=== PATIENT | female | born 1955 | race Caucasian/White ===

== ENCOUNTER → 2017-12-23 | Outpatient (CLI) | payer OTHER ==
[2017-12-15 10:33] VITALS: BP 116/67
[~2017-12-23] MED LIST: ASPI-630 PO; ATOR10TA60 PO; BISA5TAB4 PO; BUPR150T6 PO; CITA20TA6 PO; CLOP75TA PO; FAMO40TA4 PO; FENT1PAT13 TP; GABA-587 PO; HYDR-2758 PO; INSU100I13 SQ; IPRA0.2S5 IH; LACT1TAB24 PO; LISI10TA2 PO; MAGN64TA6 PO; NICO1PAT21 TD; SENN-79 PO; TAMS0.4C2 PO
--- NOTE | 2017-12-23 12:51 | RAD ---
Right upper extremity venous ultrasound, 12/23/2017: HISTORY: Right arm swelling and redness Duplex evaluation of the major veins in the right upper extremity was performed including grayscale, color-flow and spectral Doppler analysis. The right internal jugular, axillary and brachial, radial and ulnar veins are patent. There is occlusive thrombus in the right basilic and cephalic veins in the upper arms extending into the forearm. IMPRESSION: 1. No duplex evidence of deep vein thrombosis in the right upper extremity. 2. Extensive superficial venous thrombosis involving the cephalic and basilic veins. Electronically signed by: Darren Amezcua MD (12/23/2017 12:47 PM) [facility]
== END | disposition home or self-care (01) ==
LOC: US 09:16
PROVIDERS: ATTEND Internal Medicine
DX: I82.890 Acute embolism and thrombosis of other specified veins (principal); M79.89 Other specified soft tissue disorders
CPT/HCPCS: 93971

== ENCOUNTER 2018-01-03 16:34 | Inpatient (IN) | payer OTHER ==
[~2018-01-03] VITALS: Ht 162.6 cm; Wt 74.6 kg
[2018-01-03] MEDS ORDERED: IV NORMAL SALINE 1000ML BAG 1,000 ML IV ONE (17:30)
[2018-01-03] MEDS ORDERED: fentaNYL PF VIAL 100 MCG/2 ML VIAL IV ONE (17:30)
[2018-01-03 17:32] LABS: BASO % 1 % (0-3); EOS # 0.2 x10^3/uL (0.0-0.7); EOS % 3 % (0-3); HEMATOCRIT 28.5 % (36.0-47.0); HEMOGLOBIN 9.4 g/dL (12.0-15.5); LYMPH # 1.6 x10^3/uL (1.0-4.8); LYMPH % 21 % (24-48); MEAN CORPUSCULAR HEMOGLOBIN 32 pg (25-35); MEAN CORPUSCULAR HGB CONC 33 g/dL (31-37); MEAN CORPUSCULAR VOLUME 96 fL (79-100); MONO # 0.8 x10^3/uL (0.0-1.1); MONO % 10 % (0-9); NEUT # 5.1 x10^3uL (1.8-7.7); NEUT % 66 % (31-73); PLATELET COUNT 292 x10^3/uL (140-400); RED BLOOD COUNT 2.96 x10^6/uL (3.50-5.40); RED CELL DISTRIBUTION WIDTH 15.9 % (11.5-14.5); WHITE BLOOD COUNT 7.7 x10^3/uL (4.0-11.0)
[2018-01-03 17:43] LABS: PROTHROMBIN TIME PATIENT 15.7 SEC (11.7-14.0)
--- NOTE | 2018-01-03 17:44 | EKG ---
[facility] [address] [place] [address] Test Date: 2018-01-03 Test Time: 16:46:57 Pat Name: MIRIAM CONTRERAS Department: Room: Gender: F [employer]: : [id number] Requested By: HA JJ Order Number: [id number] Reading MD: Vasquez Riggs MD Measurements Intervals Altha Rate: 74 P: -26 RI: 164 QRS: -105 QRSD: 120 T: -13 QT: 408 QTc: 453 Interpretive Statements SINUS RHYTHM PAC'S RBBB NON-SPECIFIC ST/T CHANGES Electronically Signed On 01-04-2018 10:09:10 CDT by Vasquez Riggs MD
[2018-01-03 17:45] LABS: CALCIUM 8.6 mg/dL (8.5-10.1); GFR 55.8; POTASSIUM 5.2 mmol/L (3.5-5.1)
--- NOTE | 2018-01-03 17:46 | RAD ---
CT scan of the head without contrast 01/03/2018 Clinical History: Weakness. Technique: Unenhanced, contiguous, 5 mm axial sections were obtained through the head. One or more of the following individualized dose reduction techniques were utilized for this study: 1. Automated exposure control. 2. Adjustment of the mA and/or kV according to patient size. 3. Use of iterative reconstruction technique. Findings: No previous imaging studies are available for comparison. There is generalized parenchymal atrophy. Areas of decreased attenuation are seen within the periventricular and subcortical white matter of both cerebral hemispheres consistent with areas of small vessel ischemic disease. A 3.5 cm arachnoid cyst is seen anterior to the right anterior temporal lobe, unchanged. No acute parenchymal abnormality is seen. No acute extra-axial fluid collection is noted. No skull fracture is seen. Moderate mucosal thickening is seen involving the right maxillary sinus. Mild mucosal thickening in seen scattered throughout ethmoid air cells bilaterally. Impression: No acute intracranial abnormality is seen. Electronically signed by: Spencer Mejia MD (01/03/2018 5:43 PM) [facility]
[2018-01-03 17:50] LABS: ALBUMIN 2.6 g/dL (3.4-5.0); ALBUMIN/GLOBULIN RATIO 0.6 (1.0-1.7); MAGNESIUM 1.6 mg/dL (1.8-2.4); TOTAL BILIRUBIN 0.2 mg/dL (0.2-1.0); TOTAL PROTEIN 6.7 g/dL (6.4-8.2)
[2018-01-03 17:57] LABS: BILIRUBIN,URINE NEGATIVE (NEG); CLARITY,URINE CLEAR; COLOR,URINE YELLOW; NITRITE,URINE NEGATIVE (NEG); PROTEIN,URINE NEGATIVE (NEG-TRACE); UROBILINOGEN,URINE 0.2 mg/dL (0.2 mg/dL)
[2018-01-03 17:58] LABS: CREATINE KINASE 53 U/L (26-192)
[2018-01-03 18:04] LABS: AMORPHOUS SEDIMENT,UR PRESENT /HPF; BACTERIA,URINE 0 /HPF (0-FEW); RBC,URINE 0 /HPF (0-2); SQUAMOUS EPITHELIAL CELL,UR FEW /LPF
[2018-01-03] MEDS ORDERED: BUMETANIDE 1 MG/4 ML VIAL. IV ONE (18:15)
--- NOTE | 2018-01-03 18:17 | PHYS DOC ---
Past Medical History Past Medical History: CAD, CHF, COPD, Diabetes-Type II, Hip Fracture, Hypertension, ND Additional Past Medical Histor: NSTEMI, resp failure, Past Surgical History: Coronary Bypass Surgery, Hysterectomy, Other Additional Past Surgical Histo: multiple ABD surgeries;femur fx, Alcohol Use: None Drug Use: None Adult General Chief Complaint Chief Complaint: HYPOTENSION HPI HPI 62-year-old female presents from [facility] with report of generalized weakness with associated bradycardia and hypotension which apparently started today. Patient reports since leaving the hospital approximately one week ago patient has had a 25 pound weight gain as well as some increased bilateral lower extremity edema. Denies fever or chills. Denies known trauma. Patient has known decubitus ulcer. Denies chest pain or SOA. Review of Systems Review of Systems Constitutional: Denies fever or chills; reports generalized weakness Eyes: Denies change in visual acuity or eye pain [] HENT: Denies nasal congestion or sore throat [] Respiratory: Denies cough or shortness of breath [] Cardiovascular: Denies chest pain, reports increased BLE swelling GI: Denies abdominal pain, nausea, vomiting, bloody stools or diarrhea [] : Denies dysuria or hematuria [] Musculoskeletal: Reports low back pain with known ulceration Integument: Reports decubitus ulceration, denies rash Neurologic: Denies headache, focal weakness or sensory changes [] Complete systems were reviewed and found to be within normal limits, except as documented in this note. Current Medications Current Medications Current Medications Medications (Trade) Dose Ordered Sig/Fede Start Time Stop Time Status Last Admin Dose Admin Fentanyl Citrate (Fentanyl 2ml Vial) 50 mcg 1X ONCE 01/03/18 17:30 01/03/18 17:31 DC 01/03/18 17:51 50 MCG Sodium Chloride 1,000 ml @ 1,000 mls/hr 1X ONCE 01/03/18 17:30 01/03/18 18:29 DC 01/03/18 17:51 1,000 MLS/HR Allergies Allergies Allergies Coded Allergies Type Severity Reaction Last Updated Verified morphine Adverse Reaction Severe Anxiety 12/13/17 Yes oxycodone Adverse Reaction Intermediate Itching 12/13/17 Yes Physical Exam Physical Exam Constitutional: Well developed, well nourished, no acute distress, increased pallor HENT: Normocephalic, atraumatic, mucous membranes dry, dentures intact Eyes: PERRL, EOMI, conjunctiva normal, no discharge. [] Neck: Normal range of motion, no tenderness, supple, no meningeal signs Cardiovascular: Heart rate regular rhythm, no murmur [] Lungs & Thorax: Bilateral breath sounds clear to auscultation, some fine crackles at bases Abdomen: Soft, no tenderness Skin: Warm, dry, stage 2 decubitus ulceration without surrounding erythema Extremities: No tenderness, Increased weakness to BLE, able to move toes but unable to lift off bed, +3 pitting edema bilaterally Neurologic: Alert and oriented X 3, normal motor function, normal sensory function, no focal deficits noted. [] Current Patient Data Vital Signs Vital Signs Date Time Temp Pulse Resp B/P (MAP) Pulse Ox O2 Delivery O2 Flow Rate FiO2 01/03/18 16:42 97.9 75 14 84/47 (59) 96 Room Air 97.9 Lab Values Laboratory Tests Test 01/03/18 16:50 01/03/18 17:49 White Blood Count 7.7 x10^3/uL (4.0-11.0) Red Blood Count 2.96 x10^6/uL (3.50-5.40) L Hemoglobin 9.4 g/dL (12.0-15.5) L Hematocrit 28.5 % (36.0-47.0) L Mean Corpuscular Volume 96 fL (79-100) Mean Corpuscular Hemoglobin 32 pg (25-35) Mean Corpuscular Hemoglobin Concent 33 g/dL (31-37) Red Cell Distribution Width 15.9 % (11.5-14.5) H Platelet Count 292 x10^3/uL (140-400) Neutrophils (%) (Auto) 66 % (31-73) Lymphocytes (%) (Auto) 21 % (24-48) L Monocytes (%) (Auto) 10 % (0-9) H Eosinophils (%) (Auto) 3 % (0-3) Basophils (%) (Auto) 1 % (0-3) Neutrophils # (Auto) 5.1 x10^3uL (1.8-7.7) Lymphocytes # (Auto) 1.6 x10^3/uL (1.0-4.8) Monocytes # (Auto) 0.8 x10^3/uL (0.0-1.1) Eosinophils # (Auto) 0.2 x10^3/uL (0.0-0.7) Basophils # (Auto) 0.0 x10^3/uL (0.0-0.2) Prothrombin Time 15.7 SEC (11.7-14.0) H Prothrombin Time INR 1.3 (0.8-1.1) H PTT 39 SEC (24-38) H Sodium Level 135 mmol/L (136-145) L Potassium Level 5.2 mmol/L (3.5-5.1) H Chloride Level 100 mmol/L (98-107) Carbon Dioxide Level 23 mmol/L (21-32) Anion Gap 12 (6-14) Blood Urea Nitrogen 33 mg/dL (7-20) H Creatinine 1.0 mg/dL (0.6-1.0) Estimated GFR (Cockcroft-Gault) 55.8 BUN/Creatinine Ratio 33 (6-20) H Glucose Level 142 mg/dL (70-99) H Lactic Acid Level 1.3 mmol/L (0.4-2.0) Calcium Level 8.6 mg/dL (8.5-10.1) Magnesium Level 1.6 mg/dL (1.8-2.4) L Total Bilirubin 0.2 mg/dL (0.2-1.0) Aspartate Amino Transferase (AST) 15 U/L (15-37) Alanine Aminotransferase (ALT) 16 U/L (14-59) Alkaline Phosphatase 223 U/L (46-116) H Creatine Kinase 53 U/L (26-192) Creatine Kinase MB (Mass) 3.6 ng/mL (0.0-3.6) Creatine Kinase MB Relative Index % (0-4) Troponin I Quantitative < 0.017 ng/mL (0.000-0.055) KI-Pdn-A-Type Natriuretic Peptide > 85884 pg/mL (0-124) H Total Protein 6.7 g/dL (6.4-8.2) Albumin 2.6 g/dL (3.4-5.0) L Albumin/Globulin Ratio 0.6 (1.0-1.7) L Urine Collection Type U cath Urine Color Yellow Urine Clarity Clear Urine pH 5.0 Urine Specific [place] 1.010 Urine Protein Negative mg/dL (NEG-TRACE) Urine Glucose (UA) Negative mg/dL (NEG) Urine Ketones (Stick) Negative mg/dL (NEG) Urine Blood Negative (NEG) Urine Nitrite Negative (NEG) Urine Bilirubin Negative (NEG) Urine Urobilinogen Dipstick 0.2 mg/dL (0.2 mg/dL) Urine Leukocyte Esterase Small (NEG) Urine RBC 0 /HPF (0-2) Urine WBC 5-10 /HPF (0-4) Urine Squamous Epithelial Cells Few /LPF Urine Amorphous Sediment Present /HPF Urine Bacteria 0 /HPF (0-FEW) Urine Mucus Slight /LPF Laboratory Tests 01/03/18 16:50 Laboratory Tests 01/03/18 16:50 EKG EKG @1646 Sinus rhythm at 74bpm, incomplete RBBB, compared to prior EKG per MUSE review from 12/11/2017 Radiology/Procedures Radiology/Procedures PROCEDURE: CT HEAD WO CONTRAST CT scan of the head without contrast 01/03/2018 Clinical History: Weakness. Technique: Unenhanced, contiguous, 5 mm axial sections were obtained through the head. One or more of the following individualized dose reduction techniques were utilized for this study: 1. Automated exposure control. 2. Adjustment of the mA and/or kV according to patient size. 3. Use of iterative reconstruction technique. Findings: No previous imaging studies are available for comparison. There is generalized parenchymal atrophy. Areas of decreased attenuation are seen within the periventricular and subcortical white matter of both cerebral hemispheres consistent with areas of small vessel ischemic disease. A 3.5 cm arachnoid cyst is seen anterior to the right anterior temporal lobe, unchanged. No acute parenchymal abnormality is seen. No acute extra-axial fluid collection is noted. No skull fracture is seen. Moderate mucosal thickening is seen involving the right maxillary sinus. Mild mucosal thickening in seen scattered throughout ethmoid air cells bilaterally. Impression: No acute intracranial abnormality is seen. Electronically signed by: Spencer Mejia MD (01/03/2018 5:43 PM) [facility] CXR single view: Mild increased vascular congestion noted, no focal pneumonia. Course & Med Decision Making Course & Med Decision Making Pertinent Labs and Imaging studies reviewed. (See chart for details) Patient presents from [facility] with increased weakness and increased BLE edema. EKG stable. Patient with dry mucous membranes and hypotension. IVF hydration given. Labs obtained and posted to chart. Initial troponin WNL. BNP > 49621. Bumex provided. UA with mild signs of infection. Empiric antibiotics given. Patient requiring admission for further evaluation and treatment. Discussed with Dr. Taylor (hospitalist) who is in agreement with admission. Discussed findings and plan with patient and family, who acknowledge understanding and agreement. Dragon Disclaimer Dragon Disclaimer This electronic medical record was generated, in whole or in part, using a voice recognition dictation system. Departure Departure Impression: Primary Impression: Generalized weakness Additional Impressions: Acute exacerbation of CHF (congestive heart failure) Hypotension Urinary tract infection Disposition: ADMITTED INPATIENT Admitting Physician: Nandini Taylor Condition: GUARDED Referrals: UNKNOWN PCP NAME (PCP) Critical Care Time Critical care time was 30 minutes which includes time at bedside, spent in discussion of patient's care with specialists and/or family members, with interpretation of laboratory and/or radiological studies and is exclusive of procedures. Problem Qualifiers Additional Impressions: Acute exacerbation of CHF (congestive heart failure) Heart failure type: unspecified Qualified Codes: I50.9 - Heart failure, unspecified Hypotension Hypotension type: unspecified hypotension type Qualified Codes: I95.9 - Hypotension, unspecified Urinary tract infection Urinary tract infection type: acute cystitis Hematuria presence: without hematuria Qualified Codes: N30.00 - Acute cystitis without hematuria HA JJ DO Jan 03, 2018 18:17
[2018-01-03] MEDS ORDERED: ONDANSETRON PF 4 MG/2 ML VIAL. IV PRN (18:30)
[2018-01-03] MEDS ORDERED: DEXTROSE 50% 25 GM / 50ML DISP.SYRIN. IV PRN (18:30)
[2018-01-03] MEDS ORDERED: fentaNYL PF VIAL 100 MCG/2 ML VIAL IV PRN (18:30)
[2018-01-03 19:45] VITALS: BP 114/62
--- NOTE | 2018-01-03 20:25 | RAD ---
AP portable chest radiograph 01/03/2018 Clinical History: Weakness. Syncope. Coronary artery disease. COPD. An AP erect portable digital radiograph of the chest was obtained. Comparison study is dated 12/09/2017. The ET and NG tube have been removed. The left-sided chest tube and mediastinal drain have been removed. The cardiac silhouette is mildly enlarged. Atherosclerotic calcification of the thoracic aorta is seen. The thoracic aorta is mildly tortuous. There are small bilateral pleural effusions. No acute pulmonary infiltrate is seen. No pneumothorax is noted. The osseous structures are unchanged. Impression: Cardiomegaly with small bilateral pleural effusions. No acute pulmonary infiltrate is seen. Electronically signed by: Spencer Mejia MD (01/03/2018 8:21 PM) [facility]
[2018-01-03] MEDS ORDERED: BISACODYL 5 MG TABLET.DR. PO PRN (21:45)
--- NOTE | 2018-01-03 21:54 | PDOC1 ---
History and Physical Date of Admission Date of Admission DATE: 01/03/18 TIME: 21:43 Identification/Chief Complaint Chief Complaint Le edema, weakness Source Source: Chart review, Patient History of Present Illness History of Present Illness Ms. Fernandez, is a 62-year-old female, admit here recently, [facility], and has not gotten stronger. has new LE edema, 25 lbs weight gain anup week, with marked LE edema, adn shortness of breath. She could not do PT due to leg heaviness from edema . Denies fever or chills. Denies known trauma. Patient has known decubitus ulcer. Denies chest pain or SOA. Past Medical History Cardiovascular: CAD, HTN, Hyperlipidemia Pulmonary: No pertinent hx CENTRAL NERVOUS SYSTEM: Other GI: No pertinent hx, Inflam bowel disease Heme/Onc: No pertinent hx Hepatobiliary: No pertinent hx Psych: No pertinent hx Musculoskeletal: low back pain, Osteoarthritis, Other Rheumatologic: No pertinent hx Infectious disease: No pertinent hx Renal/: Urinary Incontinence Endocrine: Diabetes Past Surgical History Past Surgical History: Appendectomy, CABG, Hysterectomy, Other Family History Family History: Coronary Artery Disease Social History Smoke: Quit (had smoked a lot) ALCOHOL: none Drugs: None Current Problem List Problem List Problems Medical Problems: (1) Acute exacerbation of CHF (congestive heart failure) Status: Acute (2) Hypotension Status: Acute (3) Urinary tract infection Status: Acute Current Medications Current Medications Current Medications Sodium Chloride 1,000 ml @ 1,000 mls/hr 1X ONCE IV Last administered on at 17:51; Start 01/03/18 at 17:30; Stop 01/03/18 at 18:29; Status DC Fentanyl Citrate (Fentanyl 2ml Vial) 50 mcg 1X ONCE IV Last administered on at 17:51; Start 01/03/18 at 17:30; Stop 01/03/18 at 17:31; Status DC Bumetanide (Bumex) 0.5 mg 1X ONCE IV Last administered on 01/03/18at 18:51; Start 01/03/18 at 18:15; Stop 01/03/18 at 18:16; Status DC Ceftriaxone Sodium 50 ml @ 100 mls/hr 1X ONCE IV Last administered on at 18:51; Start 01/03/18 at 18:30; Stop 01/03/18 at 18:59; Status DC Ceftriaxone Sodium (Rocephin) 1 gm Q24H IVP ; Start 01/04/18 at 18:00 Ondansetron HCl (Zofran) 4 mg PRN Q8HRS PRN IV NAUSEA/VOMITING; Start 01/03/18 at 18:30; Stop 01/04/18 at 18:29 Fentanyl Citrate (Fentanyl 2ml Vial) 50 mcg PRN Q1HR PRN IV PAIN; Start at 18:30; Stop 01/04/18 at 18:29 Insulin Human Lispro (HumaLOG) 0-5 UNITS TIDWMEALS SQ ; Start 01/04/18 at 08:00 Dextrose (Dextrose 50%-Water Syringe) 12.5 gm PRN Q15MIN PRN IV SEE COMMENTS; Start 01/03/18 at 18:30 Zolpidem Tartrate (Ambien) 5 mg PRN QHS PRN PO INSOMNIA; Start 01/03/18 at 21: 45 Aspirin (Children'S Aspirin) 81 mg DAILY PO ; Start 01/04/18 at 09:00 Atorvastatin Calcium (Lipitor) 10 mg HS PO ; Start 01/03/18 at 22:00 Bisacodyl (Dulcolax Tab) 10 mg PRN DAILY PRN PO CONSTIPATION 1ST CHOICE; Start 01/03/18 at 21:45 Bupropion HCl (Wellbutrin Xl) 150 mg DAILY PO ; Start 01/04/18 at 09:00 Clopidogrel Bisulfate (Plavix) 75 mg DAILY PO ; Start 01/04/18 at 09:00 Acetaminophen/ Hydrocodone Bitart (Lortab 5/325) 1 tab PRN Q4HRS PRN PO MODERATE PAIN; Start 01/03/18 at 21:45 Ipratropium [place] (Atrovent) 0.5 mg RTBID IH ; Start 01/04/18 at 08:00 Lisinopril (Prinivil) 10 mg DAILY PO ; Start 01/04/18 at 09:00 Famotidine (Pepcid) 40 mg QHS PO ; Start 01/03/18 at 22:00 Gabapentin (Neurontin) 400 mg TID PO ; Start 01/03/18 at 22:00 Nicotine (Nicoderm Cq 21mg) 1 patch PRN DAILY PRN TD SMOKING CESSATION; Start 01/03/18 at 22:00 Active Scripts Active Reported FENTANYL 12mcg/hr (Fentanyl) 1 Each Patch.td72 1 Patch TP Q3DAYS Senna (Sennosides) 8.6 Mg Tablet 8.6 Mg PO NICODERM CQ 21mg (Nicotine) 1 Each Patch.td24 1 Patch TD DAILY Ipratropium [place] 0.2 Mg/1 Ml Solution 0.5 Mg IH Hydrocodone-Apap 5-325 (Hydrocodone Bit/Acetaminophen) 1 Each Tablet 1 Tab PO PRN Q4HRS PRN Famotidine 40 Mg Tablet 40 Mg PO HS Clopidogrel (Clopidogrel Bisulfate) 75 Mg Tablet 75 Mg PO DAILY Bisacodyl 5 Mg Tablet.dr 10 Mg PO PRN DAILY PRN Aspirin 81 Mg Tab.chew 81 Mg PO DAILY Lantus Solostar (Insulin Glargine,Hum.rec.anlog) 100 Unit/1 Ml Insuln.pen 1 Unit SQ Lisinopril 10 Mg Tablet 10 Mg PO DAILY Bupropion Xl (Bupropion Hcl) 150 Mg Tab.er.24h 150 Mg PO Gabapentin 400 Mg Capsule 400 Mg PO TID Atorvastatin Calcium 10 Mg Tablet 10 Mg PO HS Allergies Allergies: Coded Allergies: morphine (Verified Adverse Reaction, Severe, Anxiety, 12/13/17) oxycodone (Verified Adverse Reaction, Intermediate, Itching, 12/13/17) ROS General: No: Chills, Night Sweats, Fatigue, Malaise, Appetite, Other PSYCHOLOGICAL ROS: No: Anxiety, Behavioral Disorder, Concentration difficultie , Decreased libido, Depression, Disorientation, Hallucinations, Hostility, Irritablity, Memory difficulties, Mood Swings, Obsessive thoughts, Physical abuse, Sexual abuse, Sleep disturbances, Suicidal ideation, Other HEENT: No: Heacaches, Visual Changes, Hearing change, Nasal congestion, Nasal discharge, Oral lesions, Sinus pain, Sore Throat, Epistaxis, Sneezing, Snoring, Tinnitus, Vertigo, Vocal changes, Other Respiratory: YES: Shortness of breath, SOB with excertion; No: Cough, Hemoptysis, Orthopnea, Pleuritic Pain, Sputum Changes, Stridor, Tachypnea, Wheezing, Other Cardiovascular: yes Edema, yes Lt Headedness; No Chest Pain, No Palpitations, No Orthopnea, No Paroxysmal Noc. Dyspnea, No Other Gastrointestinal: Yes Nausea Genitourinary: No Dysuria, No Frequency, No Incontinence, No Hematuria, No Retention, No Discharge, No Urgency, No Pain, No Flank Pain, No Other, No , No , No , No , No , No , No Musculoskeletal: Yes Joint Pain, Yes Joint Stiffness, Yes Joint Swelling Neurological: No Behavorial Changes, No Bowel/Bladder ControlChng, No Confusion , No Dizziness, No Gait Disturbance, No Headaches, No Impaired Coord/balance, No Memory Loss, No Numbness/Tingling, No Seizures, No Speech Problems, No Tremors, No Visual Changes, No Weakness, No Other Skin: No Dry Skin, No Eczema, No Hair Changes, No Lumps, No Mole Changes, No Mottling, No Nail Changes, No Pruritus, No Rash, No Skin Lesion Changes, No Other, No Acne Physical Exam General: Alert, Cooperative, No acute distress HEENT: EOMI, Mucous membr. moist/pink Lungs: Clear to auscultation, Normal air movement Heart: S1S2, no gallops, no murmurs Abdomen: Normal bowel sounds, Soft Rectal Exam: not examined Extremities: No clubbing, No cyanosis, No edema, Normal pulses Skin: No rashes, No significant lesion Neuro: Normal gait, Normal speech, Normal tone, Sensation intact, Cranial nerves 3-12 NL Psych/Mental Status: Mental status NL, Mood NL Vitals Vitals Vital Signs Date Time Temp Pulse Resp B/P (MAP) Pulse Ox O2 Delivery O2 Flow Rate FiO2 01/03/18 19:45 98.0 86 20 114/62 (79) 94 Room Air 98.0 Labs Labs Laboratory Tests Test 01/03/18 16:50 01/03/18 17:49 01/03/18 21:05 White Blood Count 7.7 x10^3/uL (4.0-11.0) Red Blood Count 2.96 x10^6/uL (3.50-5.40) Hemoglobin 9.4 g/dL (12.0-15.5) Hematocrit 28.5 % (36.0-47.0) Mean Corpuscular Volume 96 fL (79-100) Mean Corpuscular Hemoglobin 32 pg (25-35) Mean Corpuscular Hemoglobin Concent 33 g/dL (31-37) Red Cell Distribution Width 15.9 % (11.5-14.5) Platelet Count 292 x10^3/uL (140-400) Neutrophils (%) (Auto) 66 % (31-73) Lymphocytes (%) (Auto) 21 % (24-48) Monocytes (%) (Auto) 10 % (0-9) Eosinophils (%) (Auto) 3 % (0-3) Basophils (%) (Auto) 1 % (0-3) Neutrophils # (Auto) 5.1 x10^3uL (1.8-7.7) Lymphocytes # (Auto) 1.6 x10^3/uL (1.0-4.8) Monocytes # (Auto) 0.8 x10^3/uL (0.0-1.1) Eosinophils # (Auto) 0.2 x10^3/uL (0.0-0.7) Basophils # (Auto) 0.0 x10^3/uL (0.0-0.2) Prothrombin Time 15.7 SEC (11.7-14.0) Prothromb Time International Ratio 1.3 (0.8-1.1) Activated Partial Thromboplast Time 39 SEC (24-38) Sodium Level 135 mmol/L (136-145) Potassium Level 5.2 mmol/L (3.5-5.1) Chloride Level 100 mmol/L (98-107) Carbon Dioxide Level 23 mmol/L (21-32) Anion Gap 12 (6-14) Blood Urea Nitrogen 33 mg/dL (7-20) Creatinine 1.0 mg/dL (0.6-1.0) Estimated GFR (Cockcroft-Gault) 55.8 BUN/Creatinine Ratio 33 (6-20) Glucose Level 142 mg/dL (70-99) Lactic Acid Level 1.3 mmol/L (0.4-2.0) Calcium Level 8.6 mg/dL (8.5-10.1) Magnesium Level 1.6 mg/dL (1.8-2.4) Total Bilirubin 0.2 mg/dL (0.2-1.0) Aspartate Amino Transf (AST/SGOT) 15 U/L (15-37) Alanine Aminotransferase (ALT/SGPT) 16 U/L (14-59) Alkaline Phosphatase 223 U/L (46-116) Creatine Kinase 53 U/L (26-192) Creatine Kinase MB (Mass) 3.6 ng/mL (0.0-3.6) Creatine Kinase MB Relative Index % (0-4) Troponin I Quantitative < 0.017 ng/mL (0.000-0.055) < 0.017 ng/mL (0.000-0.055) SY-Upl-X-Type Natriuretic Peptide > 94101 pg/mL (0-124) Total Protein 6.7 g/dL (6.4-8.2) Albumin 2.6 g/dL (3.4-5.0) Albumin/Globulin Ratio 0.6 (1.0-1.7) Urine Collection Type U cath Urine Color Yellow Urine Clarity Clear Urine pH 5.0 Urine Specific [place] 1.010 Urine Protein Negative mg/dL (NEG-TRACE) Urine Glucose (UA) Negative mg/dL (NEG) Urine Ketones (Stick) Negative mg/dL (NEG) Urine Blood Negative (NEG) Urine Nitrite Negative (NEG) Urine Bilirubin Negative (NEG) Urine Urobilinogen Dipstick 0.2 mg/dL (0.2 mg/dL) Urine Leukocyte Esterase Small (NEG) Urine RBC 0 /HPF (0-2) Urine WBC 5-10 /HPF (0-4) Urine Squamous Epithelial Cells Few /LPF Urine Amorphous Sediment Present /HPF Urine Bacteria 0 /HPF (0-FEW) Urine Mucus Slight /LPF Laboratory Tests Test 01/03/18 16:50 01/03/18 17:49 01/03/18 21:05 White Blood Count 7.7 x10^3/uL (4.0-11.0) Red Blood Count 2.96 x10^6/uL (3.50-5.40) Hemoglobin 9.4 g/dL (12.0-15.5) Hematocrit 28.5 % (36.0-47.0) Mean Corpuscular Volume 96 fL (79-100) Mean Corpuscular Hemoglobin 32 pg (25-35) Mean Corpuscular Hemoglobin Concent 33 g/dL (31-37) Red Cell Distribution Width 15.9 % (11.5-14.5) Platelet Count 292 x10^3/uL (140-400) Neutrophils (%) (Auto) 66 % (31-73) Lymphocytes (%) (Auto) 21 % (24-48) Monocytes (%) (Auto) 10 % (0-9) Eosinophils (%) (Auto) 3 % (0-3) Basophils (%) (Auto) 1 % (0-3) Neutrophils # (Auto) 5.1 x10^3uL (1.8-7.7) Lymphocytes # (Auto) 1.6 x10^3/uL (1.0-4.8) Monocytes # (Auto) 0.8 x10^3/uL (0.0-1.1) Eosinophils # (Auto) 0.2 x10^3/uL (0.0-0.7) Basophils # (Auto) 0.0 x10^3/uL (0.0-0.2) Prothrombin Time 15.7 SEC (11.7-14.0) Prothromb Time International Ratio 1.3 (0.8-1.1) Activated Partial Thromboplast Time 39 SEC (24-38) Sodium Level 135 mmol/L (136-145) Potassium Level 5.2 mmol/L (3.5-5.1) Chloride Level 100 mmol/L (98-107) Carbon Dioxide Level 23 mmol/L (21-32) Anion Gap 12 (6-14) Blood Urea Nitrogen 33 mg/dL (7-20) Creatinine 1.0 mg/dL (0.6-1.0) Estimated GFR (Cockcroft-Gault) 55.8 BUN/Creatinine Ratio 33 (6-20) Glucose Level 142 mg/dL (70-99) Lactic Acid Level 1.3 mmol/L (0.4-2.0) Calcium Level 8.6 mg/dL (8.5-10.1) Magnesium Level 1.6 mg/dL (1.8-2.4) Total Bilirubin 0.2 mg/dL (0.2-1.0) Aspartate Amino Transf (AST/SGOT) 15 U/L (15-37) Alanine Aminotransferase (ALT/SGPT) 16 U/L (14-59) Alkaline Phosphatase 223 U/L (46-116) Creatine Kinase 53 U/L (26-192) Creatine Kinase MB (Mass) 3.6 ng/mL (0.0-3.6) Creatine Kinase MB Relative Index % (0-4) Troponin I Quantitative < 0.017 ng/mL (0.000-0.055) < 0.017 ng/mL (0.000-0.055) EQ-Mzo-C-Type Natriuretic Peptide > 43046 pg/mL (0-124) Total Protein 6.7 g/dL (6.4-8.2) Albumin 2.6 g/dL (3.4-5.0) Albumin/Globulin Ratio 0.6 (1.0-1.7) Urine Collection Type U cath Urine Color Yellow Urine Clarity Clear Urine pH 5.0 Urine Specific [place] 1.010 Urine Protein Negative mg/dL (NEG-TRACE) Urine Glucose (UA) Negative mg/dL (NEG) Urine Ketones (Stick) Negative mg/dL (NEG) Urine Blood Negative (NEG) Urine Nitrite Negative (NEG) Urine Bilirubin Negative (NEG) Urine Urobilinogen Dipstick 0.2 mg/dL (0.2 mg/dL) Urine Leukocyte Esterase Small (NEG) Urine RBC 0 /HPF (0-2) Urine WBC 5-10 /HPF (0-4) Urine Squamous Epithelial Cells Few /LPF Urine Amorphous Sediment Present /HPF Urine Bacteria 0 /HPF (0-FEW) Urine Mucus Slight /LPF VTE Prophylaxis Ordered VTE Prophylaxis Devices: Yes VTE Pharmacological Prophylaxi: No Assessment/Plan Assessment/Plan acute on chronic systolic CHF, LE edema, weight gain obesity, BMI 30 weakness and debility HX tobacco use disorder UTI TIM GARCIA MD Jan 03, 2018 21:54
[2018-01-03] MEDS: GABAPENTIN 400 MG CAPSULE. PO SCH (22:00)
[2018-01-03] MEDS: FAMOTIDINE 20 MG TABLET. PO SCH (22:00)
[2018-01-03] MEDS: ATORVASTATIN CALCIUM 10 MG TABLET. PO SCH (22:00)
[2018-01-03] MEDS ORDERED: NICOTINE 21MG PATCH. TD PRN (22:00)
[2018-01-03 22:22] VITALS: BP 108/60
[2018-01-03] MEDS: ZOLPIDEM 5 MG TABLET. PO PRN (22:22)
[2018-01-03] MEDS: HYDROcodone/APAP 5/325MG 1 TAB TABLET PO PRN (22:22)
[2018-01-04 03:00] VITALS: BP 109/64
[2018-01-04 07:00] VITALS: BP 124/65
[2018-01-04] MEDS: IPRATROPIUM BROMIDE 0.5 MG/2.5 ML NEBU. IH SCH ×2 (07:51→20:09)
[2018-01-04] MEDS: INSULIN LISPRO 300 UNITS/3 ML INSULN.PEN. SQ SCH ×3 (08:00→17:00)
[2018-01-04] MEDS: HYDROcodone/APAP 5/325MG 1 TAB TABLET PO PRN ×3 (09:05→20:30)
[2018-01-04] MEDS: CLOPIDOGREL BISULFATE 75 MG TABLET PO SCH (09:07)
[2018-01-04] MEDS: GABAPENTIN 400 MG CAPSULE. PO SCH ×3 (09:07→20:29)
[2018-01-04] MEDS: ASPIRIN CHEWABLE 81 MG TABLET. PO SCH (09:08)
[2018-01-04] MEDS: LISINOPRIL 10 MG TABLET PO SCH (09:08)
[2018-01-04] MEDS: buPROPion XL 150 MG TAB.ER.24H. PO SCH (09:14)
[2018-01-04 11:00] VITALS: BP 120/62
[2018-01-04] MEDS ORDERED: FUROSEMIDE 40 MG/4 ML VIAL. IVP SCH (11:30)
--- NOTE | 2018-01-04 11:35 | PDOC2 ---
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 Heart rate reportedly in the 40s @ SNF but no supporting documentation. Systolic BP of 84 POA and was given IVF X 1 L. Presented with NT-proBNP > 35K and normal troponin level. Treated with 0.5 mg Bumex IV X 1. Reports 25# weight gain at SNF; discharge weight on 12/19/2017 was 162#; current weight is 172#. Spends considerable time with legs in dependent position in wheelchair. Reports she has not worked with PT recently as "legs too swollen." Denies dyspnea, chest pain, palpitations. Diet not low sodium @ SNF. Reason for Visit: CHF PAST MEDICAL HISTORY Cardiovascular: CAD (with previous CABG), CHF (chronic systolic), HTN, Hyperlipidemia, Other (NSTEMI 12/2017; VF arrest with shock X 1 during cardiac cath; required IABP support) Pulmonary: No pertinent hx CENTRAL NERVOUS SYSTEM: Other (none) GI: Inflam bowel disease (Crohn's ) Heme/Onc: No pertinent hx Hepatobiliary: No pertinent hx Psych: No pertinent hx Musculoskeletal: low back pain, Osteoarthritis Rheumatologic: No pertinent hx Infectious disease: No pertinent hx ENT: Sincusitis Renal/: Urinary Incontinence Endocrine: Hyperthyroidism Dermatology: No pertinent hx PAST SURGICAL HISTORY Past Surgical History: Pacemaker, CABG, Hysterectomy, Other (lumbar surgery; exp lap) FAMILY HISTORY Family History: Coronary Artery Disease SOCIAL HISTORY Smoke: 2 packs per day ALCOHOL: none Drugs: None Lives: [place] ([place]) CURRENT MEDICATIONS CURRENT MEDICATIONS Current Medications Medications (Trade) Dose Ordered Sig/Fede Route PRN Reason Start Time Stop Time Status Last Admin Dose Admin Sodium Chloride 1,000 ml @ 1,000 mls/hr 1X ONCE IV 01/03/18 17:30 01/03/18 18:29 DC 01/03/18 17:51 Fentanyl Citrate (Fentanyl 2ml Vial) 50 mcg 1X ONCE IV 01/03/18 17:30 01/03/18 17:31 DC 01/03/18 17:51 Bumetanide (Bumex) 0.5 mg 1X ONCE IV 01/03/18 18:15 01/03/18 18:16 DC 01/03/18 18:51 Ceftriaxone Sodium 50 ml @ 100 mls/hr 1X ONCE IV 01/03/18 18:30 01/03/18 18:59 DC 01/03/18 18:51 Zolpidem Tartrate (Ambien) 5 mg PRN QHS PRN PO INSOMNIA 01/03/18 21:45 01/03/18 22:22 Aspirin (Children'S Aspirin) 81 mg DAILY PO 01/04/18 09:00 01/04/18 09:08 Bupropion HCl (Wellbutrin Xl) 150 mg DAILY PO 01/04/18 09:00 01/04/18 09:14 Clopidogrel Bisulfate (Plavix) 75 mg DAILY PO 01/04/18 09:00 01/04/18 09:07 Acetaminophen/ Hydrocodone Bitart (Lortab 5/325) 1 tab PRN Q4HRS PRN PO MODERATE PAIN 01/03/18 21:45 01/04/18 09:05 Ipratropium [place] (Atrovent) 0.5 mg RTBID IH 01/04/18 08:00 01/04/18 07:51 Lisinopril (Prinivil) 10 mg DAILY PO 01/04/18 09:00 01/04/18 09:08 Gabapentin (Neurontin) 400 mg TID PO 01/03/18 22:00 01/04/18 09:07 ALLERGIES ALLERGIES: Coded Allergies: morphine (Verified Adverse Reaction, Severe, Anxiety, 12/13/17) oxycodone (Verified Adverse Reaction, Intermediate, Itching, 12/13/17) ROS General: YES: Fatigue, Malaise PSYCHOLOGICAL ROS: No: Anxiety, Behavioral Disorder, Concentration difficultie , Decreased libido, Depression, Disorientation, Hallucinations, Hostility, Irritablity, Memory difficulties, Mood Swings, Obsessive thoughts, Physical abuse, Sexual abuse, Sleep disturbances, Suicidal ideation, Other Eyes: No Blurry vision, No Decreased vision, No Double vision, No Dry eyes, No Excessive tearing, No Eye Pain, No Itchy Eyes, No Loss of vision, No Photophobia , No Scotomata, No Uses contacts, No Uses glasses, No Other HEENT: No: Heacaches, Visual Changes, Hearing change, Nasal congestion, Nasal discharge, Oral lesions, Sinus pain, Sore Throat, Epistaxis, Sneezing, Snoring, Tinnitus, Vertigo, Vocal changes, Other ALLERGY AND IMMUNOLOGY: No: Hives, Insect Bite Sensitivity, Itchy/Watery Eyes, Nasal Congestion, Post Nasal Drip, Seasonal Allergies, Other Hematological and Lymphatic: No: Bleeding Problems, Blood Clots, Blood Transfusions, Brusing, Night Sweats, Pallor, Swollen Lymph Nodes, Other ENDOCRINE: No: Breast Changes, Galactorrhea, Hair Pattern Changes, Hot Flashes , Malaise/lethargy, Mood Swings, Palpitations, Polydipsia/polyuria, Skin Changes , Temperature Intolerance, Unexpected Weight Changes, Other Respiratory: No: Cough, Hemoptysis, Orthopnea, Pleuritic Pain, Shortness of breath, SOB with excertion, Sputum Changes, Stridor, Tachypnea, Wheezing, Other Cardiovascular: yes Edema; No Chest Pain, No Palpitations, No Orthopnea, No Paroxysmal Noc. Dyspnea, No Lt Headedness, No Other Gastrointestinal: Yes Diarrhea Genitourinary: No Dysuria, No Frequency, No Incontinence, No Hematuria, No Retention, No Discharge, No Urgency, No Pain, No Flank Pain, No Other Musculoskeletal: Yes Joint Stiffness Neurological: Yes Weakness Skin: Yes Other (decubiti on buttocks POA) PHYSICAL EXAM General: Alert, Cooperative HEENT: Atraumatic Lungs: Other (soft crackles) Heart: Normal S1, Normal S2, Other (2-3/6 LLSB) Abdomen: Soft Extremities: Other (1+ bilateral LE edema) Skin: No rashes Neuro: Normal speech Psych/Mental Status: Mental status NL MUSCULOSKELETAL: Osteoarthritic changes both hands VITALS VITALS Vital Signs Date Time Temp Pulse Resp B/P (MAP) Pulse Ox O2 Delivery O2 Flow Rate FiO2 01/04/18 11:00 98.3 97 20 120/62 (81) 94 Room Air 98.3 LABS Lab: Laboratory Tests Test 01/03/18 16:50 01/03/18 17:49 01/03/18 21:05 01/04/18 00:35 White Blood Count 7.7 x10^3/uL (4.0-11.0) Red Blood Count 2.96 x10^6/uL (3.50-5.40) Hemoglobin 9.4 g/dL (12.0-15.5) Hematocrit 28.5 % (36.0-47.0) Mean Corpuscular Volume 96 fL (79-100) Mean Corpuscular Hemoglobin 32 pg (25-35) Mean Corpuscular Hemoglobin Concent 33 g/dL (31-37) Red Cell Distribution Width 15.9 % (11.5-14.5) Platelet Count 292 x10^3/uL (140-400) Neutrophils (%) (Auto) 66 % (31-73) Lymphocytes (%) (Auto) 21 % (24-48) Monocytes (%) (Auto) 10 % (0-9) Eosinophils (%) (Auto) 3 % (0-3) Basophils (%) (Auto) 1 % (0-3) Neutrophils # (Auto) 5.1 x10^3uL (1.8-7.7) Lymphocytes # (Auto) 1.6 x10^3/uL (1.0-4.8) Monocytes # (Auto) 0.8 x10^3/uL (0.0-1.1) Eosinophils # (Auto) 0.2 x10^3/uL (0.0-0.7) Basophils # (Auto) 0.0 x10^3/uL (0.0-0.2) Prothrombin Time 15.7 SEC (11.7-14.0) Prothromb Time International Ratio 1.3 (0.8-1.1) Activated Partial Thromboplast Time 39 SEC (24-38) Sodium Level 135 mmol/L (136-145) Potassium Level 5.2 mmol/L (3.5-5.1) Chloride Level 100 mmol/L (98-107) Carbon Dioxide Level 23 mmol/L (21-32) Anion Gap 12 (6-14) Blood Urea Nitrogen 33 mg/dL (7-20) Creatinine 1.0 mg/dL (0.6-1.0) Estimated GFR (Cockcroft-Gault) 55.8 BUN/Creatinine Ratio 33 (6-20) Glucose Level 142 mg/dL (70-99) Lactic Acid Level 1.3 mmol/L (0.4-2.0) Calcium Level 8.6 mg/dL (8.5-10.1) Magnesium Level 1.6 mg/dL (1.8-2.4) Total Bilirubin 0.2 mg/dL (0.2-1.0) Aspartate Amino Transf (AST/SGOT) 15 U/L (15-37) Alanine Aminotransferase (ALT/SGPT) 16 U/L (14-59) Alkaline Phosphatase 223 U/L (46-116) Creatine Kinase 53 U/L (26-192) Creatine Kinase MB (Mass) 3.6 ng/mL (0.0-3.6) Creatine Kinase MB Relative Index % (0-4) Troponin I Quantitative < 0.017 ng/mL (0.000-0.055) < 0.017 ng/mL (0.000-0.055) 0.019 ng/mL (0.000-0.055) LO-Uhy-C-Type Natriuretic Peptide > 19112 pg/mL (0-124) Total Protein 6.7 g/dL (6.4-8.2) Albumin 2.6 g/dL (3.4-5.0) Albumin/Globulin Ratio 0.6 (1.0-1.7) Urine Collection Type U cath Urine Color Yellow Urine Clarity Clear Urine pH 5.0 Urine Specific [place] 1.010 Urine Protein Negative mg/dL (NEG-TRACE) Urine Glucose (UA) Negative mg/dL (NEG) Urine Ketones (Stick) Negative mg/dL (NEG) Urine Blood Negative (NEG) Urine Nitrite Negative (NEG) Urine Bilirubin Negative (NEG) Urine Urobilinogen Dipstick 0.2 mg/dL (0.2 mg/dL) Urine Leukocyte Esterase Small (NEG) Urine RBC 0 /HPF (0-2) Urine WBC 5-10 /HPF (0-4) Urine Squamous Epithelial Cells Few /LPF Urine Amorphous Sediment Present /HPF Urine Bacteria 0 /HPF (0-FEW) Urine Mucus Slight /LPF Test 01/04/18 07:16 Glucose (Fingerstick) 94 mg/dL (70-99) IMAGES IMAGES 01/03/2018: CXR: The ET and NG tube have been removed. The left-sided chest tube and mediastinal drain have been removed. The cardiac silhouette is mildly enlarged. Atherosclerotic calcification of the thoracic aorta is seen. The thoracic aorta is mildly tortuous. There are small bilateral pleural effusions. No acute pulmonary infiltrate is seen. No pneumothorax is noted. The osseous structures are unchanged. Impression: Cardiomegaly with small bilateral pleural effusions. No acute pulmonary infiltrate is seen. EKG EKG SINUS RHYTHM PAC'S RBBB NON-SPECIFIC ST/T CHANGES ECHOCARDIOGRAM ECHOCARDIOGRAM 12/12/2017: TTE: Left ventricle systolic function is mildly impaired. The Ejection Fraction is 40 -45%. There is hypokinesis in the basal inferolateral and mid-inferolateral arias. There is akinesis in the mid-inferior and basal inferior arias. HEART CATH HEART CATH 12/12/2017: 0/40 LEFT VENTRICULOGRAM: Deferred due to known EF on echo of 40-45%. CORONARY ANGIOGRAPHY: LM is a moderate caliber vessel with normal angiographic appearance. LAD is a small caliber less than 2mm vessel proximally with a 100% mid occlusion. The distal vessel is filled via a patent DAVIES with mid to distal diffuse irregularities in a small tapered vessel. D1 has a proximal 70% stenosis and is a small caliber (less than 2mm vessel) LCx is a calcified negatively remodeled 2mm vessel with a long proximal to mid 80% stenosis. OM1 is a small caliber vessel with a proximal 100% occlusion. The distal vessel is filled via a patent vein graft with a 70% stenosis in a 2mm sized vessel distal to the anastomosis. RCA is a dominant vessel large caliber vessel with previously occluded proximal stents. The distal vessel is seen to fill via faint left to right collaterals. BYPASS ANGIOGRAPHY: DAVIES to LAD - widely patent without anastomotic stenosis. SVG to LCx - there is proximal vessel spasm resolved after disengagement, with 80% distal anastomotic stenosis. SVG to RCA - Proximally occluded. IABP INSERTION: After injection of the patient's saphenous vein graft to the obtuse marginal vessel the patient developed ventricular fibrillation and required CPR with cardioversion and was intubated for airway protection. Due to hemodynamic instability, small vessel disease and elevated troponins a decision was made to place a intra-aortic balloon pump. Subsequently, the 6 Dominican sheath in the groin was exchanged for an 8 Dominican sheath. Next, a 7.5 Fr 40 mL intra-aortic balloon pump was advanced and the tip was placed at the level just past the left subclavian vessel. 1:1 support was initiated. Next, a 5Fr venous sheath was placed in the RCFV via the modified seldinger technique. The sheaths were sutured to the skin. The patient received Amiodarone in the wood and wood products labourer. The patient was also started on dopamine for cardiogenic shock along with being given epinephrine during the code. Conclusion 1. Severe [place] 3V CAD 2. Cardiogenic shock and VF arrest. 3. 2/3 grafts patent 4. Successful insertion of an IABP via the RCFA. Recommendations Consider high risk PCI of the LCx if unable to extubate or stabilize the patient. Her vessels are very small in caliber and not easibly amenable to PCI. ASSESSMENT/PLAN ASSESSMENT/PLAN 1. acute/chronic systolic CHF --LVEF 40-45% on TTE of 12/2017 --suspect partially related to diet; LE edema may be related to legs in dependent position --given furosemide earlier today; convert to small dose Bumex tomorrow --monitor renal function and elytes 2. NSTEMI < 30 days --VF arrest with shock and compressions in wood and wood products labourer; see cath report above --planned medical management 3. ? bradycardia --continue telemetry --not on rate controlling agents 4. hypomagnesemia --replace; recheck labs in a.m 5. HLD --continue statin therapy 6. failure to thrive --has not participated in PT @ SNF --weakness related to immobility 7. ? Crohn's flair --defer to PCP CHRIS DELGADO MD 01/04/18 1626: CARDIAC CONSULT ASSESSMENT/PLAN ASSESSMENT/PLAN Patient seen and examined. Agree with above nurse practitioner note. 62-year-old woman well-known to our office with ischemic cardio myopathy recently underwent a cardiac catheterization. She had had complications due to her presentation of decomp that heart failure. She has been convalescing at rehabilitation facility but she has not made significant progress. She presents with NYHA class IV symptoms with significant lower extremity edema. We will start aggressive diuresis with close monitoring of renal function. No further testing from CV standpoint. Supportive care. VIRGINIA CHAVEZ APRN Jan 04, 2018 11:35 CHRIS DELGADO MD Jan 04, 2018 16:26
[2018-01-04] MEDS ORDERED: MAGNESIUM SULFATE 2GM 50 ML IV ONE (13:15)
--- NOTE | 2018-01-04 13:49 | PDOC ---
PROGRESS NOTES Chief Complaint Chief Complaint acute on chronic systolic CHF, EF 40% LE edema, weight gain obesity, BMI 30 weakness and debility HX tobacco use disorder decubitus ulcer stage 2 no UTI htn H/O cad dm2 hypotension, resolved. Crohn dz plan: card consult bumex iv daily as per card cont home meds on lisinopril 10mg daily BP ok today ssi wound care consult PTOT dvt ppx dc abx History of Present Illness History of Present Illness ROS: no fever, chills, sob or chest pain bl leg swelling slightly better as per pt, not that heavy any more ,still 3+ edema Vitals Vitals Vital Signs Date Time Temp Pulse Resp B/P (MAP) Pulse Ox O2 Delivery O2 Flow Rate FiO2 01/04/18 11:00 98.3 97 20 120/62 (81) 94 Room Air 98.3 Physical Exam Physical Exam decubitus has 2 lesions with some yellowish discharge coverage General: Alert, Cooperative, No acute distress Heart: Regular rate, Normal S1, Normal S2 Lungs: Clear Abdomen: Normal bowel sounds, Soft Extremities: No clubbing, No cyanosis, Normal pulses, Other (3+ bl leg edema) Skin: No rashes Labs LABS Laboratory Tests Test 01/03/18 16:50 01/03/18 17:49 01/03/18 21:05 01/04/18 00:35 White Blood Count 7.7 x10^3/uL (4.0-11.0) Red Blood Count 2.96 x10^6/uL (3.50-5.40) Hemoglobin 9.4 g/dL (12.0-15.5) Hematocrit 28.5 % (36.0-47.0) Mean Corpuscular Volume 96 fL (79-100) Mean Corpuscular Hemoglobin 32 pg (25-35) Mean Corpuscular Hemoglobin Concent 33 g/dL (31-37) Red Cell Distribution Width 15.9 % (11.5-14.5) Platelet Count 292 x10^3/uL (140-400) Neutrophils (%) (Auto) 66 % (31-73) Lymphocytes (%) (Auto) 21 % (24-48) Monocytes (%) (Auto) 10 % (0-9) Eosinophils (%) (Auto) 3 % (0-3) Basophils (%) (Auto) 1 % (0-3) Neutrophils # (Auto) 5.1 x10^3uL (1.8-7.7) Lymphocytes # (Auto) 1.6 x10^3/uL (1.0-4.8) Monocytes # (Auto) 0.8 x10^3/uL (0.0-1.1) Eosinophils # (Auto) 0.2 x10^3/uL (0.0-0.7) Basophils # (Auto) 0.0 x10^3/uL (0.0-0.2) Prothrombin Time 15.7 SEC (11.7-14.0) Prothromb Time International Ratio 1.3 (0.8-1.1) Activated Partial Thromboplast Time 39 SEC (24-38) Sodium Level 135 mmol/L (136-145) Potassium Level 5.2 mmol/L (3.5-5.1) Chloride Level 100 mmol/L (98-107) Carbon Dioxide Level 23 mmol/L (21-32) Anion Gap 12 (6-14) Blood Urea Nitrogen 33 mg/dL (7-20) Creatinine 1.0 mg/dL (0.6-1.0) Estimated GFR (Cockcroft-Gault) 55.8 BUN/Creatinine Ratio 33 (6-20) Glucose Level 142 mg/dL (70-99) Lactic Acid Level 1.3 mmol/L (0.4-2.0) Calcium Level 8.6 mg/dL (8.5-10.1) Magnesium Level 1.6 mg/dL (1.8-2.4) Total Bilirubin 0.2 mg/dL (0.2-1.0) Aspartate Amino Transf (AST/SGOT) 15 U/L (15-37) Alanine Aminotransferase (ALT/SGPT) 16 U/L (14-59) Alkaline Phosphatase 223 U/L (46-116) Creatine Kinase 53 U/L (26-192) Creatine Kinase MB (Mass) 3.6 ng/mL (0.0-3.6) Creatine Kinase MB Relative Index % (0-4) Troponin I Quantitative < 0.017 ng/mL (0.000-0.055) < 0.017 ng/mL (0.000-0.055) 0.019 ng/mL (0.000-0.055) ZU-Ori-Q-Type Natriuretic Peptide > 34252 pg/mL (0-124) Total Protein 6.7 g/dL (6.4-8.2) Albumin 2.6 g/dL (3.4-5.0) Albumin/Globulin Ratio 0.6 (1.0-1.7) Urine Collection Type U cath Urine Color Yellow Urine Clarity Clear Urine pH 5.0 Urine Specific [place] 1.010 Urine Protein Negative mg/dL (NEG-TRACE) Urine Glucose (UA) Negative mg/dL (NEG) Urine Ketones (Stick) Negative mg/dL (NEG) Urine Blood Negative (NEG) Urine Nitrite Negative (NEG) Urine Bilirubin Negative (NEG) Urine Urobilinogen Dipstick 0.2 mg/dL (0.2 mg/dL) Urine Leukocyte Esterase Small (NEG) Urine RBC 0 /HPF (0-2) Urine WBC 5-10 /HPF (0-4) Urine Squamous Epithelial Cells Few /LPF Urine Amorphous Sediment Present /HPF Urine Bacteria 0 /HPF (0-FEW) Urine Mucus Slight /LPF Test 01/04/18 07:16 01/04/18 11:39 Glucose (Fingerstick) 94 mg/dL (70-99) 127 mg/dL (70-99) Assessment and Plan Assessmemt and Plan Problems Medical Problems: (1) Acute exacerbation of CHF (congestive heart failure) Status: Acute (2) Hypotension Status: Acute (3) Urinary tract infection Status: Acute Comment Review of Relevant I have reviewed the following items katie (where applicable) has been applied. Labs Laboratory Tests Test 01/03/18 16:50 01/03/18 17:49 01/03/18 21:05 01/04/18 00:35 White Blood Count 7.7 x10^3/uL (4.0-11.0) Red Blood Count 2.96 x10^6/uL (3.50-5.40) Hemoglobin 9.4 g/dL (12.0-15.5) Hematocrit 28.5 % (36.0-47.0) Mean Corpuscular Volume 96 fL (79-100) Mean Corpuscular Hemoglobin 32 pg (25-35) Mean Corpuscular Hemoglobin Concent 33 g/dL (31-37) Red Cell Distribution Width 15.9 % (11.5-14.5) Platelet Count 292 x10^3/uL (140-400) Neutrophils (%) (Auto) 66 % (31-73) Lymphocytes (%) (Auto) 21 % (24-48) Monocytes (%) (Auto) 10 % (0-9) Eosinophils (%) (Auto) 3 % (0-3) Basophils (%) (Auto) 1 % (0-3) Neutrophils # (Auto) 5.1 x10^3uL (1.8-7.7) Lymphocytes # (Auto) 1.6 x10^3/uL (1.0-4.8) Monocytes # (Auto) 0.8 x10^3/uL (0.0-1.1) Eosinophils # (Auto) 0.2 x10^3/uL (0.0-0.7) Basophils # (Auto) 0.0 x10^3/uL (0.0-0.2) Prothrombin Time 15.7 SEC (11.7-14.0) Prothromb Time International Ratio 1.3 (0.8-1.1) Activated Partial Thromboplast Time 39 SEC (24-38) Sodium Level 135 mmol/L (136-145) Potassium Level 5.2 mmol/L (3.5-5.1) Chloride Level 100 mmol/L (98-107) Carbon Dioxide Level 23 mmol/L (21-32) Anion Gap 12 (6-14) Blood Urea Nitrogen 33 mg/dL (7-20) Creatinine 1.0 mg/dL (0.6-1.0) Estimated GFR (Cockcroft-Gault) 55.8 BUN/Creatinine Ratio 33 (6-20) Glucose Level 142 mg/dL (70-99) Lactic Acid Level 1.3 mmol/L (0.4-2.0) Calcium Level 8.6 mg/dL (8.5-10.1) Magnesium Level 1.6 mg/dL (1.8-2.4) Total Bilirubin 0.2 mg/dL (0.2-1.0) Aspartate Amino Transf (AST/SGOT) 15 U/L (15-37) Alanine Aminotransferase (ALT/SGPT) 16 U/L (14-59) Alkaline Phosphatase 223 U/L (46-116) Creatine Kinase 53 U/L (26-192) Creatine Kinase MB (Mass) 3.6 ng/mL (0.0-3.6) Creatine Kinase MB Relative Index % (0-4) Troponin I Quantitative < 0.017 ng/mL (0.000-0.055) < 0.017 ng/mL (0.000-0.055) 0.019 ng/mL (0.000-0.055) QT-Jrm-R-Type Natriuretic Peptide > 04367 pg/mL (0-124) Total Protein 6.7 g/dL (6.4-8.2) Albumin 2.6 g/dL (3.4-5.0) Albumin/Globulin Ratio 0.6 (1.0-1.7) Urine Collection Type U cath Urine Color Yellow Urine Clarity Clear Urine pH 5.0 Urine Specific [place] 1.010 Urine Protein Negative mg/dL (NEG-TRACE) Urine Glucose (UA) Negative mg/dL (NEG) Urine Ketones (Stick) Negative mg/dL (NEG) Urine Blood Negative (NEG) Urine Nitrite Negative (NEG) Urine Bilirubin Negative (NEG) Urine Urobilinogen Dipstick 0.2 mg/dL (0.2 mg/dL) Urine Leukocyte Esterase Small (NEG) Urine RBC 0 /HPF (0-2) Urine WBC 5-10 /HPF (0-4) Urine Squamous Epithelial Cells Few /LPF Urine Amorphous Sediment Present /HPF Urine Bacteria 0 /HPF (0-FEW) Urine Mucus Slight /LPF Test 01/04/18 07:16 01/04/18 11:39 Glucose (Fingerstick) 94 mg/dL (70-99) 127 mg/dL (70-99) Laboratory Tests Test 01/03/18 16:50 01/03/18 17:49 01/03/18 21:05 01/04/18 00:35 White Blood Count 7.7 x10^3/uL (4.0-11.0) Red Blood Count 2.96 x10^6/uL (3.50-5.40) Hemoglobin 9.4 g/dL (12.0-15.5) Hematocrit 28.5 % (36.0-47.0) Mean Corpuscular Volume 96 fL (79-100) Mean Corpuscular Hemoglobin 32 pg (25-35) Mean Corpuscular Hemoglobin Concent 33 g/dL (31-37) Red Cell Distribution Width 15.9 % (11.5-14.5) Platelet Count 292 x10^3/uL (140-400) Neutrophils (%) (Auto) 66 % (31-73) Lymphocytes (%) (Auto) 21 % (24-48) Monocytes (%) (Auto) 10 % (0-9) Eosinophils (%) (Auto) 3 % (0-3) Basophils (%) (Auto) 1 % (0-3) Neutrophils # (Auto) 5.1 x10^3uL (1.8-7.7) Lymphocytes # (Auto) 1.6 x10^3/uL (1.0-4.8) Monocytes # (Auto) 0.8 x10^3/uL (0.0-1.1) Eosinophils # (Auto) 0.2 x10^3/uL (0.0-0.7) Basophils # (Auto) 0.0 x10^3/uL (0.0-0.2) Prothrombin Time 15.7 SEC (11.7-14.0) Prothromb Time International Ratio 1.3 (0.8-1.1) Activated Partial Thromboplast Time 39 SEC (24-38) Sodium Level 135 mmol/L (136-145) Potassium Level 5.2 mmol/L (3.5-5.1) Chloride Level 100 mmol/L (98-107) Carbon Dioxide Level 23 mmol/L (21-32) Anion Gap 12 (6-14) Blood Urea Nitrogen 33 mg/dL (7-20) Creatinine 1.0 mg/dL (0.6-1.0) Estimated GFR (Cockcroft-Gault) 55.8 BUN/Creatinine Ratio 33 (6-20) Glucose Level 142 mg/dL (70-99) Lactic Acid Level 1.3 mmol/L (0.4-2.0) Calcium Level 8.6 mg/dL (8.5-10.1) Magnesium Level 1.6 mg/dL (1.8-2.4) Total Bilirubin 0.2 mg/dL (0.2-1.0) Aspartate Amino Transf (AST/SGOT) 15 U/L (15-37) Alanine Aminotransferase (ALT/SGPT) 16 U/L (14-59) Alkaline Phosphatase 223 U/L (46-116) Creatine Kinase 53 U/L (26-192) Creatine Kinase MB (Mass) 3.6 ng/mL (0.0-3.6) Creatine Kinase MB Relative Index % (0-4) Troponin I Quantitative < 0.017 ng/mL (0.000-0.055) < 0.017 ng/mL (0.000-0.055) 0.019 ng/mL (0.000-0.055) AP-Tcz-Y-Type Natriuretic Peptide > 00959 pg/mL (0-124) Total Protein 6.7 g/dL (6.4-8.2) Albumin 2.6 g/dL (3.4-5.0) Albumin/Globulin Ratio 0.6 (1.0-1.7) Urine Collection Type U cath Urine Color Yellow Urine Clarity Clear Urine pH 5.0 Urine Specific [place] 1.010 Urine Protein Negative mg/dL (NEG-TRACE) Urine Glucose (UA) Negative mg/dL (NEG) Urine Ketones (Stick) Negative mg/dL (NEG) Urine Blood Negative (NEG) Urine Nitrite Negative (NEG) Urine Bilirubin Negative (NEG) Urine Urobilinogen Dipstick 0.2 mg/dL (0.2 mg/dL) Urine Leukocyte Esterase Small (NEG) Urine RBC 0 /HPF (0-2) Urine WBC 5-10 /HPF (0-4) Urine Squamous Epithelial Cells Few /LPF Urine Amorphous Sediment Present /HPF Urine Bacteria 0 /HPF (0-FEW) Urine Mucus Slight /LPF Test 01/04/18 07:16 01/04/18 11:39 Glucose (Fingerstick) 94 mg/dL (70-99) 127 mg/dL (70-99) Medications Current Medications Sodium Chloride 1,000 ml @ 1,000 mls/hr 1X ONCE IV Last administered on 17:51; Start 01/03/18 at 17:30; Stop 01/03/18 at 18:29; Status DC Fentanyl Citrate (Fentanyl 2ml Vial) 50 mcg 1X ONCE IV Last administered on 17:51; Start 01/03/18 at 17:30; Stop 01/03/18 at 17:31; Status DC Bumetanide (Bumex) 0.5 mg 1X ONCE IV Last administered on 01/03/18 18:51; Start 01/03/18 at 18:15; Stop 01/03/18 at 18:16; Status DC Ceftriaxone Sodium 50 ml @ 100 mls/hr 1X ONCE IV Last administered on at 18:51; Start 01/03/18 at 18:30; Stop 01/03/18 at 18:59; Status DC Ceftriaxone Sodium (Rocephin) 1 gm Q24H IVP ; Start 01/04/18 at 18:00; Stop 01/04/18 at 18:00; Status DC Ondansetron HCl (Zofran) 4 mg PRN Q8HRS PRN IV NAUSEA/VOMITING; Start 01/03/18 at 18:30; Stop 01/04/18 at 18:29 Fentanyl Citrate (Fentanyl 2ml Vial) 50 mcg PRN Q1HR PRN IV PAIN; Start at 18:30; Stop 01/04/18 at 18:29 Insulin Human Lispro (HumaLOG) 0-5 UNITS TIDWMEALS SQ ; Start 01/04/18 at 08:00 Dextrose (Dextrose 50%-Water Syringe) 12.5 gm PRN Q15MIN PRN IV SEE COMMENTS; Start 01/03/18 at 18:30 Zolpidem Tartrate (Ambien) 5 mg PRN QHS PRN PO INSOMNIA Last administered on at 22:22; Start 01/03/18 at 21:45 Aspirin (Children'S Aspirin) 81 mg DAILY PO Last administered on 01/04/18at 09: 08; Start 01/04/18 at 09:00 Atorvastatin Calcium (Lipitor) 10 mg HS PO ; Start 01/03/18 at 22:00 Bisacodyl (Dulcolax Tab) 10 mg PRN DAILY PRN PO CONSTIPATION 1ST CHOICE; Start 01/03/18 at 21:45 Bupropion HCl (Wellbutrin Xl) 150 mg DAILY PO Last administered on 01/04/18at 09 :14; Start 01/04/18 at 09:00 Clopidogrel Bisulfate (Plavix) 75 mg DAILY PO Last administered on 01/04/18at 09 :07; Start 01/04/18 at 09:00 Acetaminophen/ Hydrocodone Bitart (Lortab 5/325) 1 tab PRN Q4HRS PRN PO MODERATE PAIN Last administered on 01/04/18at 09:05; Start 01/03/18 at 21:45 Ipratropium Ewen (Atrovent) 0.5 mg RTBID IH Last administered on 01/04/18at 07:51; Start 01/04/18 at 08:00 Lisinopril (Prinivil) 10 mg DAILY PO Last administered on 01/04/18at 09:08; Start 01/04/18 at 09:00 Famotidine (Pepcid) 40 mg QHS PO ; Start 01/03/18 at 22:00 Gabapentin (Neurontin) 400 mg TID PO Last administered on 01/04/18at 09:07; Start 01/03/18 at 22:00 Nicotine (Nicoderm Cq 21mg) 1 patch PRN DAILY PRN TD SMOKING CESSATION; Start 01/03/18 at 22:00 Lactobacillus Rhamnosus (Culturelle) 1 cap BID PO ; Start 01/04/18 at 21:00 Ascorbic Acid (Vitamin C) 500 mg DAILY PO ; Start 01/04/18 at 11:00 Multivitamins (Thera M Plus) 1 tab DAILY PO ; Start 01/04/18 at 11:00 Furosemide (Lasix) 40 mg DAILY IVP ; Start 01/04/18 at 11:30; Stop 01/04/18 at 12:01; Status DC Bumetanide (Bumex) 0.5 mg DAILY IV ; Start 01/05/18 at 09:00 Magnesium Sulfate 50 ml @ 25 mls/hr 1X ONCE IV ; Start 01/04/18 at 13:15; Stop 01/04/18 at 15:14 Active Scripts Active Reported FENTANYL 12mcg/hr (Fentanyl) 1 Each Patch.td72 1 Patch TP Q3DAYS Senna (Sennosides) 8.6 Mg Tablet 8.6 Mg PO NICODERM CQ 21mg (Nicotine) 1 Each Patch.td24 1 Patch TD DAILY Ipratropium Ewen 0.2 Mg/1 Ml Solution 0.5 Mg IH Hydrocodone-Apap 5-325 (Hydrocodone Bit/Acetaminophen) 1 Each Tablet 1 Tab PO PRN Q4HRS PRN Famotidine 40 Mg Tablet 40 Mg PO HS Clopidogrel (Clopidogrel Bisulfate) 75 Mg Tablet 75 Mg PO DAILY Bisacodyl 5 Mg Tablet.dr 10 Mg PO PRN DAILY PRN Aspirin 81 Mg Tab.chew 81 Mg PO DAILY Lantus Solostar (Insulin Glargine,Hum.rec.anlog) 100 Unit/1 Ml Insuln.pen 1 Unit SQ Lisinopril 10 Mg Tablet 10 Mg PO DAILY Bupropion Xl (Bupropion Hcl) 150 Mg Tab.er.24h 150 Mg PO Gabapentin 400 Mg Capsule 400 Mg PO TID Atorvastatin Calcium 10 Mg Tablet 10 Mg PO HS Vitals/I & O Vital Sign - Last 24 Hours 01/03/18 01/03/18 01/03/18 01/03/18 16:42 17:03 17:45 18:00 Temp 97.9 97.9 Pulse 75 78 78 74 Resp 14 24 19 20 B/P (MAP) 84/47 (59) 94/53 (67) 98/51 (67) 91/52 (65) Pulse Ox 96 99 98 97 O2 Delivery Room Air Room Air Room Air 01/03/18 01/03/18 01/03/18 01/03/18 18:30 18:45 19:00 19:45 Temp 98.0 98.0 Pulse 78 80 82 86 Resp 20 20 16 20 B/P (MAP) 98/55 (69) 114/56 (75) 112/60 (77) 114/62 (79) Pulse Ox 97 97 97 94 O2 Delivery Room Air Room Air Room Air Room Air 01/03/18 01/04/18 01/04/18 01/04/18 22:22 03:00 07:00 07:35 Temp 98.1 97.7 98.1 98.1 97.7 98.1 Pulse 90 93 97 Resp 20 B/P (MAP) 108/60 (76) 109/64 (79) 124/65 (84) Pulse Ox 95 96 95 O2 Delivery Room Air Room Air Room Air Room Air 01/04/18 01/04/18 01/04/18 01/04/18 07:53 09:05 09:08 11:00 Temp 98.3 98.3 Pulse 97 97 Resp 18 20 B/P (MAP) 124/65 120/62 (81) Pulse Ox 95 95 94 O2 Delivery Room Air Room Air Room Air Intake and Output 01/03/18 01/03/18 01/04/18 15:00 23:00 07:00 Intake Total 0 ml 650 ml Balance 0 ml 650 ml SHILPI GODOY MD Jan 04, 2018 13:49
[2018-01-04] MEDS: ENOXAPARIN 40 MG/0.4 ML SYRINGE. SQ SCH (14:35)
[2018-01-04] MEDS: ASCORBIC ACID 500 MG TABLET PO SCH (14:35)
[2018-01-04] MEDS: MULTIVITAMIN with MINERAL TABLET. PO SCH (14:35)
[2018-01-04 15:00] VITALS: BP 113/57
[2018-01-04] MEDS ORDERED: cefTRIAXone IV Push 1 GM VIAL. IVP SCH (18:00)
[2018-01-04 18:30] VITALS: BP 123/68
[2018-01-04] MEDS: LACTOBACILLUS RHAMNOSUS GG 1 CAPSULE. PO SCH (20:29)
[2018-01-04] MEDS: FAMOTIDINE 20 MG TABLET. PO SCH (20:29)
[2018-01-04] MEDS: ATORVASTATIN CALCIUM 10 MG TABLET. PO SCH (20:29)
[2018-01-04 23:16] VITALS: BP 91/53
[2018-01-05] VITALS (7 sets, daily range): BP systolic 85–118; BP diastolic 49–70
[2018-01-05] MEDS: HYDROcodone/APAP 5/325MG 1 TAB TABLET PO PRN ×4 (02:57→20:36)
[2018-01-05 04:53] LABS: CALCIUM 8.3 mg/dL (8.5-10.1); CREATININE 0.8 mg/dL (0.6-1.0); GFR 72.2; MAGNESIUM 1.7 mg/dL (1.8-2.4); POTASSIUM 4.4 mmol/L (3.5-5.1)
[2018-01-05] MEDS: IPRATROPIUM BROMIDE 0.5 MG/2.5 ML NEBU. IH SCH ×2 (07:36→20:00)
[2018-01-05] MEDS: INSULIN LISPRO 300 UNITS/3 ML INSULN.PEN. SQ SCH ×3 (08:00→17:00)
[2018-01-05] MEDS ORDERED: MAGNESIUM SULFATE 4GM 100 ML IV ONE (08:15)
[2018-01-05] MEDS: CLOPIDOGREL BISULFATE 75 MG TABLET PO SCH (08:54)
[2018-01-05] MEDS: ASPIRIN CHEWABLE 81 MG TABLET. PO SCH (08:54)
[2018-01-05] MEDS: LACTOBACILLUS RHAMNOSUS GG 1 CAPSULE. PO SCH ×2 (08:55→20:33)
[2018-01-05] MEDS: GABAPENTIN 400 MG CAPSULE. PO SCH ×3 (08:55→20:33)
[2018-01-05] MEDS: buPROPion XL 150 MG TAB.ER.24H. PO SCH (08:55)
[2018-01-05] MEDS: BUMETANIDE 1 MG/4 ML VIAL. IV SCH (08:55)
[2018-01-05] MEDS: LISINOPRIL 10 MG TABLET PO SCH (08:55)
[2018-01-05] MEDS: MULTIVITAMIN with MINERAL TABLET. PO SCH (08:55)
[2018-01-05] MEDS: ASCORBIC ACID 500 MG TABLET PO SCH (08:55)
--- NOTE | 2018-01-05 11:23 | PDOC ---
[employer] [employer] 01/05/18 1123: CARDIO Progress Notes Date and Time Date of Service 01/05/2018 Time of Evaluation 1121 Subjective Subjective: No Chest Pain, No shortness of breath, No Palpitations, No Dizziness Vitals Vitals Vital Signs Date Time Temp Pulse Resp B/P (MAP) Pulse Ox O2 Delivery O2 Flow Rate FiO2 01/05/18 09:55 18 95 Room Air 01/05/18 08:55 91 106/60 01/05/18 07:00 98.3 98.3 Weight Weight [ ] Input and Output Intake and Output Intake and Output 01/05/18 07:00 Intake Total 425 ml Output Total 850 ml Balance -425 ml Intake Oral 425 ml Output Urine Total 850 ml # Voids 102 Laboratory Labs Laboratory Tests Test 01/04/18 11:39 01/04/18 17:04 01/05/18 03:50 01/05/18 07:52 Glucose (Fingerstick) 127 mg/dL (70-99) 130 mg/dL (70-99) 91 mg/dL (70-99) Sodium Level 137 mmol/L (136-145) Potassium Level 4.4 mmol/L (3.5-5.1) Chloride Level 102 mmol/L (98-107) Carbon Dioxide Level 26 mmol/L (21-32) Anion Gap 9 (6-14) Blood Urea Nitrogen 24 mg/dL (7-20) Creatinine 0.8 mg/dL (0.6-1.0) Estimated GFR (Cockcroft-Gault) 72.2 Glucose Level 104 mg/dL (70-99) Calcium Level 8.3 mg/dL (8.5-10.1) Magnesium Level 1.7 mg/dL (1.8-2.4) Physical Exam HEENT: Neck Supple W Full Motion Chest: Symmetric LUNGS: Other (diminished in bases) Heart: S1S2, no murmurs Abdomen: Soft N/T Extremities: Other (1+ LE edema) Neurology: alert, oriented, follow commands Assessment Assessment 1. acute/chronic systolic CHF --LVEF 40-45% on TTE of 12/2017 --low dose Bumex; ? gained 11# overnight; no significant output from diuretics yesterday --monitor renal function and elytes 2. NSTEMI < 30 days --VF arrest with shock and compressions in cath lab tech; see cath report above --planned medical management 3. ? bradycardia --no evidence on telemetry in the last 24 hours 4. hypomagnesemia --replaced again today 5. HLD --continue statin therapy 6. failure to thrive --has not participated in PT @ SNF --weakness related to immobility --PT/OT; needs to mobilize and reluctant to do so 7. ? Crohn's flair --defer to PCP CHRIS DELGADO MD 01/05/18 1733: CARDIO Progress Notes Plan Plan Pt. seen and examined. Agree with above nurse practitioner note. Will likely need a Lindsay catheter placed for accurate measurement of fluid intake output. May consider milrinone therapy. Continue aggressive diuresis. VIRGINIA CHAVEZ APRN Jan 05, 2018 11:23 CHRIS DELGADO MD Jan 05, 2018 17:33
--- NOTE | 2018-01-05 13:39 | PDOC ---
PROGRESS NOTES Chief Complaint Chief Complaint acute on chronic systolic CHF, EF 40% LE edema, weight gain obesity, BMI 30 weakness and debility HX tobacco use disorder decubitus ulcer stage 2 no UTI htn H/O cad dm2 hypotension, resolved. Crohn dz left groin skin rash, could be shingles hypomagnesemia plan: card consulted bumex iv daily as per card cont home meds replete Mag on lisinopril 10mg daily BP ok today ssi wound care consulted PTOT dvt ppx dc abx add valacyclovir stool softner prn History of Present Illness History of Present Illness ROS: no fever, chills, sob or chest pain bl leg swelling slightly better as per pt, not that heavy any more ,still 2+ edema c/o new left groin skin rash since last night, with some raised redness, buring pain, stingy, itchying, however, has cream on , cannot see how it really looks like no bm for days as usual with cronhs dz pt not on lasix as shown in computer in SNF, but pt said she was taking it daily Vitals Vitals Vital Signs Date Time Temp Pulse Resp B/P (MAP) Pulse Ox O2 Delivery O2 Flow Rate FiO2 01/05/18 11:00 98.3 91 18 108/62 (77) 96 Room Air 98.3 Physical Exam Physical Exam decubitus has 2 lesions with some yellowish discharge coverage left groin skin rash with raised redness, some opening General: Alert, Cooperative Heart: Normal S1, Normal S2, Other (2-3/6 LLSB) Lungs: Clear Abdomen: Soft Extremities: Other (2+ bilateral LE edema) Skin: No rashes Labs LABS Laboratory Tests Test 01/04/18 17:04 01/05/18 03:50 01/05/18 07:52 01/05/18 12:06 Glucose (Fingerstick) 130 mg/dL (70-99) 91 mg/dL (70-99) 115 mg/dL (70-99) Sodium Level 137 mmol/L (136-145) Potassium Level 4.4 mmol/L (3.5-5.1) Chloride Level 102 mmol/L (98-107) Carbon Dioxide Level 26 mmol/L (21-32) Anion Gap 9 (6-14) Blood Urea Nitrogen 24 mg/dL (7-20) Creatinine 0.8 mg/dL (0.6-1.0) Estimated GFR (Cockcroft-Gault) 72.2 Glucose Level 104 mg/dL (70-99) Calcium Level 8.3 mg/dL (8.5-10.1) Magnesium Level 1.7 mg/dL (1.8-2.4) Assessment and Plan Assessmemt and Plan Problems Medical Problems: (1) Acute exacerbation of CHF (congestive heart failure) Status: Acute (2) Hypotension Status: Acute (3) Urinary tract infection Status: Acute Comment Review of Relevant I have reviewed the following items katie (where applicable) has been applied. Labs Laboratory Tests Test 01/03/18 16:50 01/03/18 17:49 01/03/18 20:00 01/03/18 21:05 White Blood Count 7.7 x10^3/uL (4.0-11.0) Red Blood Count 2.96 x10^6/uL (3.50-5.40) Hemoglobin 9.4 g/dL (12.0-15.5) Hematocrit 28.5 % (36.0-47.0) Mean Corpuscular Volume 96 fL (79-100) Mean Corpuscular Hemoglobin 32 pg (25-35) Mean Corpuscular Hemoglobin Concent 33 g/dL (31-37) Red Cell Distribution Width 15.9 % (11.5-14.5) Platelet Count 292 x10^3/uL (140-400) Neutrophils (%) (Auto) 66 % (31-73) Lymphocytes (%) (Auto) 21 % (24-48) Monocytes (%) (Auto) 10 % (0-9) Eosinophils (%) (Auto) 3 % (0-3) Basophils (%) (Auto) 1 % (0-3) Neutrophils # (Auto) 5.1 x10^3uL (1.8-7.7) Lymphocytes # (Auto) 1.6 x10^3/uL (1.0-4.8) Monocytes # (Auto) 0.8 x10^3/uL (0.0-1.1) Eosinophils # (Auto) 0.2 x10^3/uL (0.0-0.7) Basophils # (Auto) 0.0 x10^3/uL (0.0-0.2) Prothrombin Time 15.7 SEC (11.7-14.0) Prothromb Time International Ratio 1.3 (0.8-1.1) Activated Partial Thromboplast Time 39 SEC (24-38) Sodium Level 135 mmol/L (136-145) Potassium Level 5.2 mmol/L (3.5-5.1) Chloride Level 100 mmol/L (98-107) Carbon Dioxide Level 23 mmol/L (21-32) Anion Gap 12 (6-14) Blood Urea Nitrogen 33 mg/dL (7-20) Creatinine 1.0 mg/dL (0.6-1.0) Estimated GFR (Cockcroft-Gault) 55.8 BUN/Creatinine Ratio 33 (6-20) Glucose Level 142 mg/dL (70-99) Lactic Acid Level 1.3 mmol/L (0.4-2.0) Calcium Level 8.6 mg/dL (8.5-10.1) Magnesium Level 1.6 mg/dL (1.8-2.4) Total Bilirubin 0.2 mg/dL (0.2-1.0) Aspartate Amino Transf (AST/SGOT) 15 U/L (15-37) Alanine Aminotransferase (ALT/SGPT) 16 U/L (14-59) Alkaline Phosphatase 223 U/L (46-116) Creatine Kinase 53 U/L (26-192) Creatine Kinase MB (Mass) 3.6 ng/mL (0.0-3.6) Creatine Kinase MB Relative Index % (0-4) Troponin I Quantitative < 0.017 ng/mL (0.000-0.055) < 0.017 ng/mL (0.000-0.055) XV-Lai-N-Type Natriuretic Peptide > 75752 pg/mL (0-124) Total Protein 6.7 g/dL (6.4-8.2) Albumin 2.6 g/dL (3.4-5.0) Albumin/Globulin Ratio 0.6 (1.0-1.7) Urine Collection Type U cath Urine Color Yellow Urine Clarity Clear Urine pH 5.0 Urine Specific [place] 1.010 Urine Protein Negative mg/dL (NEG-TRACE) Urine Glucose (UA) Negative mg/dL (NEG) Urine Ketones (Stick) Negative mg/dL (NEG) Urine Blood Negative (NEG) Urine Nitrite Negative (NEG) Urine Bilirubin Negative (NEG) Urine Urobilinogen Dipstick 0.2 mg/dL (0.2 mg/dL) Urine Leukocyte Esterase Small (NEG) Urine RBC 0 /HPF (0-2) Urine WBC 5-10 /HPF (0-4) Urine Squamous Epithelial Cells Few /LPF Urine Amorphous Sediment Present /HPF Urine Bacteria 0 /HPF (0-FEW) Urine Mucus Slight /LPF Nasal Screen MRSA (PCR) Negative (Negative) Test 01/04/18 00:35 01/04/18 07:16 01/04/18 11:39 01/04/18 17:04 Troponin I Quantitative 0.019 ng/mL (0.000-0.055) Glucose (Fingerstick) 94 mg/dL (70-99) 127 mg/dL (70-99) 130 mg/dL (70-99) Test 01/05/18 03:50 01/05/18 07:52 01/05/18 12:06 Sodium Level 137 mmol/L (136-145) Potassium Level 4.4 mmol/L (3.5-5.1) Chloride Level 102 mmol/L (98-107) Carbon Dioxide Level 26 mmol/L (21-32) Anion Gap 9 (6-14) Blood Urea Nitrogen 24 mg/dL (7-20) Creatinine 0.8 mg/dL (0.6-1.0) Estimated GFR (Cockcroft-Gault) 72.2 Glucose Level 104 mg/dL (70-99) Calcium Level 8.3 mg/dL (8.5-10.1) Magnesium Level 1.7 mg/dL (1.8-2.4) Glucose (Fingerstick) 91 mg/dL (70-99) 115 mg/dL (70-99) Laboratory Tests Test 01/04/18 17:04 01/05/18 03:50 01/05/18 07:52 01/05/18 12:06 Glucose (Fingerstick) 130 mg/dL (70-99) 91 mg/dL (70-99) 115 mg/dL (70-99) Sodium Level 137 mmol/L (136-145) Potassium Level 4.4 mmol/L (3.5-5.1) Chloride Level 102 mmol/L (98-107) Carbon Dioxide Level 26 mmol/L (21-32) Anion Gap 9 (6-14) Blood Urea Nitrogen 24 mg/dL (7-20) Creatinine 0.8 mg/dL (0.6-1.0) Estimated GFR (Cockcroft-Gault) 72.2 Glucose Level 104 mg/dL (70-99) Calcium Level 8.3 mg/dL (8.5-10.1) Magnesium Level 1.7 mg/dL (1.8-2.4) Medications Current Medications Sodium Chloride 1,000 ml @ 1,000 mls/hr 1X ONCE IV Last administered on at 17:51; Start 01/03/18 at 17:30; Stop 01/03/18 at 18:29; Status DC Fentanyl Citrate (Fentanyl 2ml Vial) 50 mcg 1X ONCE IV Last administered on at 17:51; Start 01/03/18 at 17:30; Stop 01/03/18 at 17:31; Status DC Bumetanide (Bumex) 0.5 mg 1X ONCE IV Last administered on 01/03/18at 18:51; Start 01/03/18 at 18:15; Stop 01/03/18 at 18:16; Status DC Ceftriaxone Sodium 50 ml @ 100 mls/hr 1X ONCE IV Last administered on at 18:51; Start 01/03/18 at 18:30; Stop 01/03/18 at 18:59; Status DC Ceftriaxone Sodium (Rocephin) 1 gm Q24H IVP ; Start 01/04/18 at 18:00; Stop 01/04/18 at 18:00; Status DC Ondansetron HCl (Zofran) 4 mg PRN Q8HRS PRN IV NAUSEA/VOMITING; Start 01/03/18 at 18:30; Stop 01/04/18 at 18:29; Status DC Fentanyl Citrate (Fentanyl 2ml Vial) 50 mcg PRN Q1HR PRN IV PAIN; Start at 18:30; Stop 01/04/18 at 18:29; Status DC Insulin Human Lispro (HumaLOG) 0-5 UNITS TIDWMEALS SQ ; Start 01/04/18 at 08:00 Dextrose (Dextrose 50%-Water Syringe) 12.5 gm PRN Q15MIN PRN IV SEE COMMENTS; Start 01/03/18 at 18:30 Zolpidem Tartrate (Ambien) 5 mg PRN QHS PRN PO INSOMNIA Last administered on 22:22; Start 01/03/18 at 21:45 Aspirin (Children'S Aspirin) 81 mg DAILY PO Last administered on 01/05/18 08: 54; Start 01/04/18 at 09:00 Atorvastatin Calcium (Lipitor) 10 mg HS PO Last administered on 01/04/18 20:29 ; Start 01/03/18 at 22:00 Bisacodyl (Dulcolax Tab) 10 mg PRN DAILY PRN PO CONSTIPATION 1ST CHOICE; Start 01/03/18 at 21:45 Bupropion HCl (Wellbutrin Xl) 150 mg DAILY PO Last administered on 01/05/18 08 :55; Start 01/04/18 at 09:00 Clopidogrel Bisulfate (Plavix) 75 mg DAILY PO Last administered on 01/05/18 08 :54; Start 01/04/18 at 09:00 Acetaminophen/ Hydrocodone Bitart (Lortab 5/325) 1 tab PRN Q4HRS PRN PO MODERATE PAIN Last administered on 01/05/18 08:55; Start 01/03/18 at 21:45 Ipratropium [place] (Atrovent) 0.5 mg RTBID IH Last administered on 01/05/18 07:36; Start 01/04/18 at 08:00 Lisinopril (Prinivil) 10 mg DAILY PO Last administered on 01/05/18 08:55; Start 01/04/18 at 09:00 Famotidine (Pepcid) 40 mg QHS PO Last administered on 01/04/18 20:29; Start 01/03/18 at 22:00 Gabapentin (Neurontin) 400 mg TID PO Last administered on 01/05/18 08:55; Start 01/03/18 at 22:00 Nicotine (Nicoderm Cq 21mg) 1 patch PRN DAILY PRN TD SMOKING CESSATION; Start 01/03/18 at 22:00 Lactobacillus Rhamnosus (Culturelle) 1 cap BID PO Last administered on 08:55; Start 01/04/18 at 21:00 Ascorbic Acid (Vitamin C) 500 mg DAILY PO Last administered on 01/05/18 08:55 ; Start 01/04/18 at 11:00 Multivitamins (Thera M Plus) 1 tab DAILY PO Last administered on 01/05/18at 08: 55; Start 01/04/18 at 11:00 Furosemide (Lasix) 40 mg DAILY IVP ; Start 01/04/18 at 11:30; Stop 01/04/18 at 12:01; Status DC Bumetanide (Bumex) 0.5 mg DAILY IV Last administered on 01/05/18at 08:55; Start 01/05/18 at 09:00 Magnesium Sulfate 50 ml @ 25 mls/hr 1X ONCE IV Last administered on 01/04/18at 14:35; Start 01/04/18 at 13:15; Stop 01/04/18 at 15:14; Status DC Enoxaparin Sodium (Lovenox 40mg Syringe) 40 mg Q24H SQ Last administered on 01/04/18at 14:35; Start 01/04/18 at 14:15 Magnesium Sulfate/ Dextrose 100 ml @ 25 mls/hr 1X ONCE IV Last administered on 01/05/18at 09:02; Start 01/05/18 at 08:15; Stop 01/05/18 at 12:14; Status DC Valacyclovir HCl (Valtrex) 1,000 mg TID PO ; Start 01/05/18 at 14:00 Active Scripts Active Reported FENTANYL 12mcg/hr (Fentanyl) 1 Each Patch.td72 1 Patch TP Q3DAYS Senna (Sennosides) 8.6 Mg Tablet 8.6 Mg PO NICODERM CQ 21mg (Nicotine) 1 Each Patch.td24 1 Patch TD DAILY Ipratropium [place] 0.2 Mg/1 Ml Solution 0.5 Mg IH Hydrocodone-Apap 5-325 (Hydrocodone Bit/Acetaminophen) 1 Each Tablet 1 Tab PO PRN Q4HRS PRN Famotidine 40 Mg Tablet 40 Mg PO HS Clopidogrel (Clopidogrel Bisulfate) 75 Mg Tablet 75 Mg PO DAILY Bisacodyl 5 Mg Tablet.dr 10 Mg PO PRN DAILY PRN Aspirin 81 Mg Tab.chew 81 Mg PO DAILY Lantus Solostar (Insulin Glargine,Hum.rec.anlog) 100 Unit/1 Ml Insuln.pen 1 Unit SQ Lisinopril 10 Mg Tablet 10 Mg PO DAILY Bupropion Xl (Bupropion Hcl) 150 Mg Tab.er.24h 150 Mg PO Gabapentin 400 Mg Capsule 400 Mg PO TID Atorvastatin Calcium 10 Mg Tablet 10 Mg PO HS Vitals/I & O Vital Sign - Last 24 Hours 01/04/18 01/04/18 01/04/18 01/04/18 15:00 16:22 18:30 19:41 Temp 98.6 98.1 98.6 98.1 Pulse 97 99 Resp 20 18 20 B/P (MAP) 113/57 (75) 123/68 (86) Pulse Ox 91 91 95 97 O2 Delivery Room Air Room Air Room Air Room Air 01/04/18 01/04/18 01/04/18 01/05/18 20:00 20:30 23:16 02:57 Temp 98.2 98.2 Pulse 87 Resp 18 B/P (MAP) 91/53 (66) Pulse Ox 97 95 94 O2 Delivery Room Air Room Air Room Air Room Air 01/05/18 01/05/18 01/05/18 01/05/18 02:59 07:00 07:37 08:00 Temp 97.8 98.3 97.8 98.3 Pulse 87 91 Resp 18 16 B/P (MAP) 85/49 (61) 106/60 (75) Pulse Ox 94 93 95 O2 Delivery Room Air Room Air Room Air Room Air 01/05/18 01/05/18 01/05/18 01/05/18 08:55 08:55 09:55 11:00 Temp 98.3 98.3 Pulse 91 91 Resp 18 18 B/P (MAP) 106/60 108/62 (77) Pulse Ox 95 95 96 O2 Delivery Room Air Room Air Room Air Intake and Output 01/04/18 01/04/18 01/05/18 15:00 23:00 07:00 Intake Total 300 ml 125 ml Output Total 650 ml 200 ml Balance -650 ml 300 ml -75 ml SHILPI GODOY MD Jan 05, 2018 13:39
[2018-01-05] MEDS ORDERED: DOCUSATE SODIUM 100 MG CAPSULE. PO PRN (13:45)
[2018-01-05] MEDS ORDERED: ACETAMINOPHEN 325 MG TABLET. PO PRN (13:45)
[2018-01-05] MEDS ORDERED: ONDANSETRON PF 4 MG/2 ML VIAL. IV PRN (13:45)
[2018-01-05] MEDS: valACYclovir 500 MG TABLET. PO SCH ×2 (15:36→20:33)
[2018-01-05] MEDS: ENOXAPARIN 40 MG/0.4 ML SYRINGE. SQ SCH (15:38)
[2018-01-05] MEDS: ATORVASTATIN CALCIUM 10 MG TABLET. PO SCH (20:32)
[2018-01-05] MEDS: FAMOTIDINE 20 MG TABLET. PO SCH (20:33)
[2018-01-05] MEDS: ZOLPIDEM 5 MG TABLET. PO PRN (20:36)
[2018-01-06] MEDS ORDERED: BUMETANIDE 1 MG/4 ML VIAL. IV ONE
[2018-01-06 03:28] VITALS: BP 106/68
[2018-01-06 06:28] LABS: CALCIUM 8.8 mg/dL (8.5-10.1); CREATININE 0.7 mg/dL (0.6-1.0); GFR 84.2; MAGNESIUM 2.1 mg/dL (1.8-2.4); POTASSIUM 4.5 mmol/L (3.5-5.1)
[2018-01-06 06:39] LABS: BASO % 1 % (0-3); EOS # 0.3 x10^3/uL (0.0-0.7); EOS % 4 % (0-3); HEMATOCRIT 26.9 % (36.0-47.0); HEMOGLOBIN 8.9 g/dL (12.0-15.5); LYMPH # 1.4 x10^3/uL (1.0-4.8); LYMPH % 17 % (24-48); MEAN CORPUSCULAR HEMOGLOBIN 32 pg (25-35); MEAN CORPUSCULAR HGB CONC 33 g/dL (31-37); MEAN CORPUSCULAR VOLUME 96 fL (79-100); MONO # 0.9 x10^3/uL (0.0-1.1); MONO % 11 % (0-9); NEUT # 5.4 x10^3uL (1.8-7.7); NEUT % 67 % (31-73); PLATELET COUNT 316 x10^3/uL (140-400); RED CELL DISTRIBUTION WIDTH 15.8 % (11.5-14.5); WHITE BLOOD COUNT 8.1 x10^3/uL (4.0-11.0)
[2018-01-06 07:00] VITALS: BP 120/72
[2018-01-06] MEDS: IPRATROPIUM BROMIDE 0.5 MG/2.5 ML NEBU. IH SCH ×2 (08:00→20:00)
[2018-01-06] MEDS: INSULIN LISPRO 300 UNITS/3 ML INSULN.PEN. SQ SCH ×3 (08:00→17:00)
[2018-01-06] MEDS: CLOPIDOGREL BISULFATE 75 MG TABLET PO SCH (08:50)
[2018-01-06] MEDS: MULTIVITAMIN with MINERAL TABLET. PO SCH (08:50)
[2018-01-06] MEDS: valACYclovir 500 MG TABLET. PO SCH ×3 (08:50→20:42)
[2018-01-06] MEDS: LACTOBACILLUS RHAMNOSUS GG 1 CAPSULE. PO SCH ×2 (08:50→20:43)
[2018-01-06] MEDS: LISINOPRIL 10 MG TABLET PO SCH (08:50)
[2018-01-06] MEDS: buPROPion XL 150 MG TAB.ER.24H. PO SCH (08:50)
[2018-01-06] MEDS: ASCORBIC ACID 500 MG TABLET PO SCH (08:50)
[2018-01-06] MEDS: ASPIRIN CHEWABLE 81 MG TABLET. PO SCH (08:50)
[2018-01-06] MEDS: BUMETANIDE 1 MG/4 ML VIAL. IV SCH (08:51)
[2018-01-06] MEDS: GABAPENTIN 400 MG CAPSULE. PO SCH ×3 (08:51→20:43)
[2018-01-06] MEDS: HYDROcodone/APAP 5/325MG 1 TAB TABLET PO PRN ×3 (08:53→20:47)
[2018-01-06 11:00] VITALS: BP 110/68
--- NOTE | 2018-01-06 12:02 | PDOC ---
KATHYVIRGINIA Teresita PERSONNEL ARBITRATOR 01/06/18 1202: CARDIO Progress Notes Date and Time Date of Service 01/06/2018 Time of Evaluation 1158 Subjective Subjective: No Chest Pain, No shortness of breath, No Palpitations, No Dizziness, Other (up in chair with legs in dependent position ) Vitals Vitals Vital Signs Date Time Temp Pulse Resp B/P (MAP) Pulse Ox O2 Delivery O2 Flow Rate FiO2 01/06/18 11:00 98.0 100 18 110/68 (82) 96 Room Air 98.0 Weight Weight [ ] Input and Output Intake and Output Intake and Output 01/06/18 07:00 Intake Total 880 ml Output Total 2850 ml Balance -1970 ml Intake Oral 880 ml Output Urine Total 2850 ml # Voids 2 # Bowel Movements 1 Laboratory Labs Laboratory Tests Test 01/05/18 12:06 01/05/18 17:07 01/05/18 21:12 01/06/18 06:00 Glucose (Fingerstick) 115 mg/dL (70-99) 135 mg/dL (70-99) 159 mg/dL (70-99) White Blood Count 8.1 x10^3/uL (4.0-11.0) Red Blood Count 2.80 x10^6/uL (3.50-5.40) Hemoglobin 8.9 g/dL (12.0-15.5) Hematocrit 26.9 % (36.0-47.0) Mean Corpuscular Volume 96 fL (79-100) Mean Corpuscular Hemoglobin 32 pg (25-35) Mean Corpuscular Hemoglobin Concent 33 g/dL (31-37) Red Cell Distribution Width 15.8 % (11.5-14.5) Platelet Count 316 x10^3/uL (140-400) Neutrophils (%) (Auto) 67 % (31-73) Lymphocytes (%) (Auto) 17 % (24-48) Monocytes (%) (Auto) 11 % (0-9) Eosinophils (%) (Auto) 4 % (0-3) Basophils (%) (Auto) 1 % (0-3) Neutrophils # (Auto) 5.4 x10^3uL (1.8-7.7) Lymphocytes # (Auto) 1.4 x10^3/uL (1.0-4.8) Monocytes # (Auto) 0.9 x10^3/uL (0.0-1.1) Eosinophils # (Auto) 0.3 x10^3/uL (0.0-0.7) Basophils # (Auto) 0.0 x10^3/uL (0.0-0.2) Sodium Level 137 mmol/L (136-145) Potassium Level 4.5 mmol/L (3.5-5.1) Chloride Level 101 mmol/L (98-107) Carbon Dioxide Level 27 mmol/L (21-32) Anion Gap 9 (6-14) Blood Urea Nitrogen 20 mg/dL (7-20) Creatinine 0.7 mg/dL (0.6-1.0) Estimated GFR (Cockcroft-Gault) 84.2 Glucose Level 133 mg/dL (70-99) Calcium Level 8.8 mg/dL (8.5-10.1) Magnesium Level 2.1 mg/dL (1.8-2.4) Test 01/06/18 07:35 01/06/18 11:10 Glucose (Fingerstick) 128 mg/dL (70-99) 152 mg/dL (70-99) Microbiology Micro Microbiology 01/03/18 Urine Culture - Final, Complete 01/03/18 Urine Culture Result 1 (ANDI) - Final, Complete Physical Exam HEENT: Neck Supple W Full Motion Chest: Symmetric LUNGS: Clear to Auscultation Heart: S1S2, no murmurs Abdomen: Soft N/T Extremities: Other (1-2+ LE edema) Neurology: alert, oriented, follow commands Assessment Assessment 1. acute/chronic systolic CHF --LVEF 40-45% on TTE of 12/2017 --weight is now < admission weight @ 168#; continue diuretics --monitor renal function and elytes 2. 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 hypomagnesemia --resolved 4. HLD --continue statin therapy 5. failure to thrive --has not participated in PT @ SNF --weakness related to immobility --PT/OT; needs to mobilize and reluctant to do so CHRIS DELGADO MD 01/07/18 0194: CARDIO Progress Notes Plan Plan Late entry for 01/06/2018. Patient seen and examined. Agree with above nurse practitioner note. Her edema is lessened but she still has 3+ pitting edema up to her thigh. Continue diuresis with close monitoring of her renal function. Supportive care. VIRGINIA CHAVEZ APRN Jan 06, 2018 12:02 CHRIS DELGAOD MD Jan 07, 2018 08:24
--- NOTE | 2018-01-06 14:39 | PDOC2 ---
GI CONSULT Reason For Consult: H/o Crohn's disease, family request HPI: HPI: 62 y/o female admitted w/ CHF (additional recent h/o NSTEMI). The patient and family requested to see GI while inpatient due to h/o Crohn's disease. She tells me she was initially diagnosed with Crohn's in her 20s - first had a ruptured appendix, then had recurrent "bowel blockages" and underwent 6-7 small bowel resections (last >35 years ago). She was treated w/ sulfasalazine for awhile, but has not been treated with anything for >35 years. She had several EGDs and colonoscopies w/ Dr. Camejo (last >10 years ago) that were all reportedly normal except for a narrowing in her esophagus which was dilated. Her typical bowel pattern used to be 1-3 formed stools weekly; however, this has changed during the past 6-12 months. She attributes this to stress - she has been in and out of the hospital (says hasn't been home since October) and her . She wonders if her Crohn's is active because has had "thick diarrhea" and "unexpected" stooling - sometimes during the night after she turns in bed, sometimes after standing up from a chair. Though this does not always occur daily, it can occur 3-4 times daily (or nightly). Denies abdominal pain. Denies change in appetite. Has gained weight (though relates to fluid/swelling). Denies n/v. Denies reflux/heartburn and bloating. Occasional dysphagia w/ solids - maybe twice weekly (though sometimes much less often), food gets caught in the oropharynx and she must cough it up. No hematochezia or melena. Takes ASA 81mg QD. No GB, liver, or pancreas history. On Pepcid QHS here. Reviewed w/ RN - loose stools overnight, none yesterday or today during day shift. C Diff was negative on 12/07. PMH: PMH: CAD s/p CABG, CHF, HTN, HLD, [place] (12/2017 - w/ VF arrest/shock/compressions), Crohn's disease, OA, sinusitis, hyperthyroidism, total hysterectomy, lumbar surgery, pacemaker, appendectomy, small bowel resections Social History: Smoke: 2 packs per day ALCOHOL: none Drugs: None ROS: GEN: Denies fevers, chills, sweats HEENT: Denies blurred vision, sore throat CV: Denies chest pain RESP: Denies shortness of air, cough GI: Per HPI : Denies hematuria, dysuria ENDO: +weight gain NEURO: Denies confusion, dizziness MSK: +swelling SKIN: Denies jaundice, pruritus Vitals: Vitals: Vital Signs Date Time Temp Pulse Resp B/P (MAP) Pulse Ox O2 Delivery O2 Flow Rate FiO2 01/06/18 11:00 98.0 100 18 110/68 (82) 96 Room Air 98.0 Labs: Labs: Laboratory Tests Test 01/05/18 17:07 01/05/18 21:12 01/06/18 06:00 01/06/18 07:35 Glucose (Fingerstick) 135 mg/dL (70-99) 159 mg/dL (70-99) 128 mg/dL (70-99) White Blood Count 8.1 x10^3/uL (4.0-11.0) Red Blood Count 2.80 x10^6/uL (3.50-5.40) Hemoglobin 8.9 g/dL (12.0-15.5) Hematocrit 26.9 % (36.0-47.0) Mean Corpuscular Volume 96 fL (79-100) Mean Corpuscular Hemoglobin 32 pg (25-35) Mean Corpuscular Hemoglobin Concent 33 g/dL (31-37) Red Cell Distribution Width 15.8 % (11.5-14.5) Platelet Count 316 x10^3/uL (140-400) Neutrophils (%) (Auto) 67 % (31-73) Lymphocytes (%) (Auto) 17 % (24-48) Monocytes (%) (Auto) 11 % (0-9) Eosinophils (%) (Auto) 4 % (0-3) Basophils (%) (Auto) 1 % (0-3) Neutrophils # (Auto) 5.4 x10^3uL (1.8-7.7) Lymphocytes # (Auto) 1.4 x10^3/uL (1.0-4.8) Monocytes # (Auto) 0.9 x10^3/uL (0.0-1.1) Eosinophils # (Auto) 0.3 x10^3/uL (0.0-0.7) Basophils # (Auto) 0.0 x10^3/uL (0.0-0.2) Sodium Level 137 mmol/L (136-145) Potassium Level 4.5 mmol/L (3.5-5.1) Chloride Level 101 mmol/L (98-107) Carbon Dioxide Level 27 mmol/L (21-32) Anion Gap 9 (6-14) Blood Urea Nitrogen 20 mg/dL (7-20) Creatinine 0.7 mg/dL (0.6-1.0) Estimated GFR (Cockcroft-Gault) 84.2 Glucose Level 133 mg/dL (70-99) Calcium Level 8.8 mg/dL (8.5-10.1) Magnesium Level 2.1 mg/dL (1.8-2.4) Test 01/06/18 11:10 01/06/18 12:15 Glucose (Fingerstick) 152 mg/dL (70-99) Erythrocyte Sedimentation Rate 67 (0-25) Allergies: Coded Allergies: morphine (Verified Adverse Reaction, Severe, Anxiety, 12/13/17) oxycodone (Verified Adverse Reaction, Intermediate, Itching, 12/13/17) Medications: Current Medications Medications (Trade) Dose Ordered Sig/Fede Route PRN Reason Start Time Stop Time Status Last Admin Dose Admin Bumetanide (Bumex) 1 mg ONCE ONCE IV 01/06/18 00:00 01/06/18 00:01 DC 01/06/18 00:16 Imaging: Imaging: Head CT Impression: No acute intracranial abnormality is seen. CXR Impression: Cardiomegaly with small bilateral pleural effusions. No acute pulmonary infiltrate is seen. PE: GEN: NAD, was asleep HEENT: Atraumatic, PERRL LUNGS: CTAB HEART: tachycardic ABD: NABS, S/ND/NT EXTREMITY: BLE edema SKIN: No rashes, no jaundice NEURO/PSYCH: A & O 3 A/P: A/P: CHF, recent NSTEMI/arrest H/o Crohn's disease w/ small bowel resections Change in bowel habits CRC screen - 10+ years ago Intermittent dysphagia - EGD w/ dilation in the past, on Pepcid QHS Normocytic anemia - stable compared to last month -- Change in bowel habits - unclear if related to Crohn's. Will review w/ Dr. Sanchez. JOSEY SAUCEDA Jan 06, 2018 14:39
[2018-01-06 15:00] VITALS: BP 113/60
--- NOTE | 2018-01-06 15:00 | PDOC ---
PROGRESS NOTES Chief Complaint Chief Complaint acute on chronic systolic CHF, EF 40% LE edema, weight gain obesity, BMI 30 weakness and debility HX tobacco use disorder decubitus ulcer stage 2 no UTI htn H/O cad dm2 hypotension, resolved. Crohn dz left groin skin rash, could be shingles hypomagnesemia plan: card consulted bumex iv daily as per card cont home meds replete Mag on lisinopril 10mg daily BP ok today ssi wound care consulted PTOT dvt ppx dc abx add valacyclovir stool softner prn family request gi consult. will do History of Present Illness History of Present Illness ROS: no fever, chills, sob or chest pain bl leg swelling slightly better as per pt, not that heavy any more ,still 2+ edema c/o new left groin skin rash since last night, with some raised redness, buring pain, stingy, itchying, however, has cream on , cannot see how it really looks like no bm for days as usual with roberto dz. one time big BM last night. Today, sister c/o bm incontinence, request GI consult for crohns dz pt not on lasix as shown in computer in SNF, but pt said she was taking it daily Vitals Vitals Vital Signs Date Time Temp Pulse Resp B/P (MAP) Pulse Ox O2 Delivery O2 Flow Rate FiO2 01/06/18 11:00 98.0 100 18 110/68 (82) 96 Room Air 98.0 Physical Exam Physical Exam decubitus has 2 lesions with some yellowish discharge coverage left groin skin rash with raised redness, some opening General: Alert, Cooperative Heart: Normal S1, Normal S2, Other (2-3/6 LLSB) Lungs: Clear Abdomen: Soft Extremities: Other (2+ bilateral LE edema) Skin: No rashes Labs LABS Laboratory Tests Test 01/05/18 17:07 01/05/18 21:12 01/06/18 06:00 01/06/18 07:35 Glucose (Fingerstick) 135 mg/dL (70-99) 159 mg/dL (70-99) 128 mg/dL (70-99) White Blood Count 8.1 x10^3/uL (4.0-11.0) Red Blood Count 2.80 x10^6/uL (3.50-5.40) Hemoglobin 8.9 g/dL (12.0-15.5) Hematocrit 26.9 % (36.0-47.0) Mean Corpuscular Volume 96 fL (79-100) Mean Corpuscular Hemoglobin 32 pg (25-35) Mean Corpuscular Hemoglobin Concent 33 g/dL (31-37) Red Cell Distribution Width 15.8 % (11.5-14.5) Platelet Count 316 x10^3/uL (140-400) Neutrophils (%) (Auto) 67 % (31-73) Lymphocytes (%) (Auto) 17 % (24-48) Monocytes (%) (Auto) 11 % (0-9) Eosinophils (%) (Auto) 4 % (0-3) Basophils (%) (Auto) 1 % (0-3) Neutrophils # (Auto) 5.4 x10^3uL (1.8-7.7) Lymphocytes # (Auto) 1.4 x10^3/uL (1.0-4.8) Monocytes # (Auto) 0.9 x10^3/uL (0.0-1.1) Eosinophils # (Auto) 0.3 x10^3/uL (0.0-0.7) Basophils # (Auto) 0.0 x10^3/uL (0.0-0.2) Sodium Level 137 mmol/L (136-145) Potassium Level 4.5 mmol/L (3.5-5.1) Chloride Level 101 mmol/L (98-107) Carbon Dioxide Level 27 mmol/L (21-32) Anion Gap 9 (6-14) Blood Urea Nitrogen 20 mg/dL (7-20) Creatinine 0.7 mg/dL (0.6-1.0) Estimated GFR (Cockcroft-Gault) 84.2 Glucose Level 133 mg/dL (70-99) Calcium Level 8.8 mg/dL (8.5-10.1) Magnesium Level 2.1 mg/dL (1.8-2.4) Test 01/06/18 11:10 01/06/18 12:15 Glucose (Fingerstick) 152 mg/dL (70-99) Erythrocyte Sedimentation Rate 67 (0-25) Assessment and Plan Assessmemt and Plan Problems Medical Problems: (1) Acute exacerbation of CHF (congestive heart failure) Status: Acute (2) Hypotension Status: Acute (3) Urinary tract infection Status: Acute Comment Review of Relevant I have reviewed the following items katie (where applicable) has been applied. Labs Laboratory Tests Test 01/04/18 17:04 01/05/18 03:50 01/05/18 07:52 01/05/18 12:06 Glucose (Fingerstick) 130 mg/dL (70-99) 91 mg/dL (70-99) 115 mg/dL (70-99) Sodium Level 137 mmol/L (136-145) Potassium Level 4.4 mmol/L (3.5-5.1) Chloride Level 102 mmol/L (98-107) Carbon Dioxide Level 26 mmol/L (21-32) Anion Gap 9 (6-14) Blood Urea Nitrogen 24 mg/dL (7-20) Creatinine 0.8 mg/dL (0.6-1.0) Estimated GFR (Cockcroft-Gault) 72.2 Glucose Level 104 mg/dL (70-99) Calcium Level 8.3 mg/dL (8.5-10.1) Magnesium Level 1.7 mg/dL (1.8-2.4) Test 01/05/18 17:07 01/05/18 21:12 01/06/18 06:00 01/06/18 07:35 Glucose (Fingerstick) 135 mg/dL (70-99) 159 mg/dL (70-99) 128 mg/dL (70-99) White Blood Count 8.1 x10^3/uL (4.0-11.0) Red Blood Count 2.80 x10^6/uL (3.50-5.40) Hemoglobin 8.9 g/dL (12.0-15.5) Hematocrit 26.9 % (36.0-47.0) Mean Corpuscular Volume 96 fL (79-100) Mean Corpuscular Hemoglobin 32 pg (25-35) Mean Corpuscular Hemoglobin Concent 33 g/dL (31-37) Red Cell Distribution Width 15.8 % (11.5-14.5) Platelet Count 316 x10^3/uL (140-400) Neutrophils (%) (Auto) 67 % (31-73) Lymphocytes (%) (Auto) 17 % (24-48) Monocytes (%) (Auto) 11 % (0-9) Eosinophils (%) (Auto) 4 % (0-3) Basophils (%) (Auto) 1 % (0-3) Neutrophils # (Auto) 5.4 x10^3uL (1.8-7.7) Lymphocytes # (Auto) 1.4 x10^3/uL (1.0-4.8) Monocytes # (Auto) 0.9 x10^3/uL (0.0-1.1) Eosinophils # (Auto) 0.3 x10^3/uL (0.0-0.7) Basophils # (Auto) 0.0 x10^3/uL (0.0-0.2) Sodium Level 137 mmol/L (136-145) Potassium Level 4.5 mmol/L (3.5-5.1) Chloride Level 101 mmol/L (98-107) Carbon Dioxide Level 27 mmol/L (21-32) Anion Gap 9 (6-14) Blood Urea Nitrogen 20 mg/dL (7-20) Creatinine 0.7 mg/dL (0.6-1.0) Estimated GFR (Cockcroft-Gault) 84.2 Glucose Level 133 mg/dL (70-99) Calcium Level 8.8 mg/dL (8.5-10.1) Magnesium Level 2.1 mg/dL (1.8-2.4) Test 01/06/18 11:10 01/06/18 12:15 Glucose (Fingerstick) 152 mg/dL (70-99) Erythrocyte Sedimentation Rate 67 (0-25) Laboratory Tests Test 01/05/18 17:07 01/05/18 21:12 01/06/18 06:00 01/06/18 07:35 Glucose (Fingerstick) 135 mg/dL (70-99) 159 mg/dL (70-99) 128 mg/dL (70-99) White Blood Count 8.1 x10^3/uL (4.0-11.0) Red Blood Count 2.80 x10^6/uL (3.50-5.40) Hemoglobin 8.9 g/dL (12.0-15.5) Hematocrit 26.9 % (36.0-47.0) Mean Corpuscular Volume 96 fL (79-100) Mean Corpuscular Hemoglobin 32 pg (25-35) Mean Corpuscular Hemoglobin Concent 33 g/dL (31-37) Red Cell Distribution Width 15.8 % (11.5-14.5) Platelet Count 316 x10^3/uL (140-400) Neutrophils (%) (Auto) 67 % (31-73) Lymphocytes (%) (Auto) 17 % (24-48) Monocytes (%) (Auto) 11 % (0-9) Eosinophils (%) (Auto) 4 % (0-3) Basophils (%) (Auto) 1 % (0-3) Neutrophils # (Auto) 5.4 x10^3uL (1.8-7.7) Lymphocytes # (Auto) 1.4 x10^3/uL (1.0-4.8) Monocytes # (Auto) 0.9 x10^3/uL (0.0-1.1) Eosinophils # (Auto) 0.3 x10^3/uL (0.0-0.7) Basophils # (Auto) 0.0 x10^3/uL (0.0-0.2) Sodium Level 137 mmol/L (136-145) Potassium Level 4.5 mmol/L (3.5-5.1) Chloride Level 101 mmol/L (98-107) Carbon Dioxide Level 27 mmol/L (21-32) Anion Gap 9 (6-14) Blood Urea Nitrogen 20 mg/dL (7-20) Creatinine 0.7 mg/dL (0.6-1.0) Estimated GFR (Cockcroft-Gault) 84.2 Glucose Level 133 mg/dL (70-99) Calcium Level 8.8 mg/dL (8.5-10.1) Magnesium Level 2.1 mg/dL (1.8-2.4) Test 01/06/18 11:10 01/06/18 12:15 Glucose (Fingerstick) 152 mg/dL (70-99) Erythrocyte Sedimentation Rate 67 (0-25) Microbiology 01/03/18 Urine Culture - Final, Complete 01/03/18 Urine Culture Result 1 (ANDI) - Final, Complete Medications Current Medications Sodium Chloride 1,000 ml @ 1,000 mls/hr 1X ONCE IV Last administered on at 17:51; Start 01/03/18 at 17:30; Stop 01/03/18 at 18:29; Status DC Fentanyl Citrate (Fentanyl 2ml Vial) 50 mcg 1X ONCE IV Last administered on at 17:51; Start 01/03/18 at 17:30; Stop 01/03/18 at 17:31; Status DC Bumetanide (Bumex) 0.5 mg 1X ONCE IV Last administered on 01/03/18at 18:51; Start 01/03/18 at 18:15; Stop 01/03/18 at 18:16; Status DC Ceftriaxone Sodium 50 ml @ 100 mls/hr 1X ONCE IV Last administered on at 18:51; Start 01/03/18 at 18:30; Stop 01/03/18 at 18:59; Status DC Ceftriaxone Sodium (Rocephin) 1 gm Q24H IVP ; Start 01/04/18 at 18:00; Stop 01/04/18 at 18:00; Status DC Ondansetron HCl (Zofran) 4 mg PRN Q8HRS PRN IV NAUSEA/VOMITING; Start 01/03/18 at 18:30; Stop 01/04/18 at 18:29; Status DC Fentanyl Citrate (Fentanyl 2ml Vial) 50 mcg PRN Q1HR PRN IV PAIN; Start at 18:30; Stop 01/04/18 at 18:29; Status DC Insulin Human Lispro (HumaLOG) 0-5 UNITS TIDWMEALS SQ ; Start 01/04/18 at 08:00 Dextrose (Dextrose 50%-Water Syringe) 12.5 gm PRN Q15MIN PRN IV SEE COMMENTS; Start 01/03/18 at 18:30 Zolpidem Tartrate (Ambien) 5 mg PRN QHS PRN PO INSOMNIA Last administered on at 20:36; Start 01/03/18 at 21:45 Aspirin (Children'S Aspirin) 81 mg DAILY PO Last administered on 01/06/18at 08: 50; Start 01/04/18 at 09:00 Atorvastatin Calcium (Lipitor) 10 mg HS PO Last administered on 01/05/18at 20:32 ; Start 01/03/18 at 22:00 Bisacodyl (Dulcolax Tab) 10 mg PRN DAILY PRN PO CONSTIPATION 1ST CHOICE; Start 01/03/18 at 21:45 Bupropion HCl (Wellbutrin Xl) 150 mg DAILY PO Last administered on 01/06/18 08 :50; Start 01/04/18 at 09:00 Clopidogrel Bisulfate (Plavix) 75 mg DAILY PO Last administered on 01/06/18 08 :50; Start 01/04/18 at 09:00 Acetaminophen/ Hydrocodone Bitart (Lortab 5/325) 1 tab PRN Q4HRS PRN PO MODERATE PAIN Last administered on 01/06/18 08:53; Start 01/03/18 at 21:45 Ipratropium [place] (Atrovent) 0.5 mg RTBID IH Last administered on 01/06/18 08:00; Start 01/04/18 at 08:00 Lisinopril (Prinivil) 10 mg DAILY PO Last administered on 01/06/18 08:50; Start 01/04/18 at 09:00 Famotidine (Pepcid) 40 mg QHS PO Last administered on 01/05/18 20:33; Start 01/03/18 at 22:00 Gabapentin (Neurontin) 400 mg TID PO Last administered on 01/06/18 08:51; Start 01/03/18 at 22:00 Nicotine (Nicoderm Cq 21mg) 1 patch PRN DAILY PRN TD SMOKING CESSATION; Start 01/03/18 at 22:00 Lactobacillus Rhamnosus (Culturelle) 1 cap BID PO Last administered on 08:50; Start 01/04/18 at 21:00 Ascorbic Acid (Vitamin C) 500 mg DAILY PO Last administered on 01/06/18 08:50 ; Start 01/04/18 at 11:00 Multivitamins (Thera M Plus) 1 tab DAILY PO Last administered on 01/06/18 08: 50; Start 01/04/18 at 11:00 Furosemide (Lasix) 40 mg DAILY IVP ; Start 01/04/18 at 11:30; Stop 01/04/18 at 12:01; Status DC Bumetanide (Bumex) 0.5 mg DAILY IV Last administered on 01/06/18 08:51; Start 01/05/18 at 09:00 Magnesium Sulfate 50 ml @ 25 mls/hr 1X ONCE IV Last administered on 01/04/18at 14:35; Start 01/04/18 at 13:15; Stop 01/04/18 at 15:14; Status DC Enoxaparin Sodium (Lovenox 40mg Syringe) 40 mg Q24H SQ Last administered on 01/05/18at 15:38; Start 01/04/18 at 14:15 Magnesium Sulfate/ Dextrose 100 ml @ 25 mls/hr 1X ONCE IV Last administered on 01/05/18at 09:02; Start 01/05/18 at 08:15; Stop 01/05/18 at 12:14; Status DC Valacyclovir HCl (Valtrex) 1,000 mg TID PO Last administered on 01/06/18at 08:50 ; Start 01/05/18 at 14:00 Acetaminophen (Tylenol) 650 mg PRN Q6HRS PRN PO FEVER; Start 01/05/18 at 13:45 Ondansetron HCl (Zofran) 4 mg PRN Q6HRS PRN IV NAUSEA/VOMITING; Start 01/05/18 at 13:45 Docusate Sodium (Colace) 100 mg PRN DAILY PRN PO CONSTIPATION, 2ND CHOICE; Start 01/05/18 at 13:45 Bumetanide (Bumex) 1 mg ONCE ONCE IV Last administered on 01/06/18at 00:16; Start 01/06/18 at 00:00; Stop 01/06/18 at 00:01; Status DC Active Scripts Active Reported FENTANYL 12mcg/hr (Fentanyl) 1 Each Patch.td72 1 Patch TP Q3DAYS Senna (Sennosides) 8.6 Mg Tablet 8.6 Mg PO NICODERM CQ 21mg (Nicotine) 1 Each Patch.td24 1 Patch TD DAILY Ipratropium [place] 0.2 Mg/1 Ml Solution 0.5 Mg IH Hydrocodone-Apap 5-325 (Hydrocodone Bit/Acetaminophen) 1 Each Tablet 1 Tab PO PRN Q4HRS PRN Famotidine 40 Mg Tablet 40 Mg PO HS Clopidogrel (Clopidogrel Bisulfate) 75 Mg Tablet 75 Mg PO DAILY Bisacodyl 5 Mg Tablet.dr 10 Mg PO PRN DAILY PRN Aspirin 81 Mg Tab.chew 81 Mg PO DAILY Lantus Solostar (Insulin Glargine,Hum.rec.anlog) 100 Unit/1 Ml Insuln.pen 1 Unit SQ Lisinopril 10 Mg Tablet 10 Mg PO DAILY Bupropion Xl (Bupropion Hcl) 150 Mg Tab.er.24h 150 Mg PO Gabapentin 400 Mg Capsule 400 Mg PO TID Atorvastatin Calcium 10 Mg Tablet 10 Mg PO HS Vitals/I & O Vital Sign - Last 24 Hours 01/05/18 01/05/18 01/05/18 01/05/18 15:00 16:40 19:00 20:00 Temp 97.9 97.9 97.9 97.9 Pulse 94 95 Resp 19 19 18 B/P (MAP) 97/59 (72) 109/65 (80) Pulse Ox 93 93 95 O2 Delivery Room Air Room Air Room Air Room Air 01/05/18 01/05/18 01/05/18 01/06/18 20:36 20:42 23:04 03:28 Temp 97.9 97.7 97.7 97.9 97.7 97.7 Pulse 95 98 98 Resp 16 18 B/P (MAP) 109/65 (80) 118/70 (86) 106/68 (81) Pulse Ox 93 97 97 O2 Delivery Room Air Room Air Room Air Room Air 01/06/18 01/06/18 01/06/18 01/06/18 07:00 08:00 08:50 08:53 Temp 97.6 97.6 Pulse 94 94 Resp 20 20 B/P (MAP) 120/72 (88) 120/72 Pulse Ox 95 95 O2 Delivery Room Air Room Air Room Air 01/06/18 01/06/18 09:53 11:00 Temp 98.0 98.0 Pulse 100 Resp 17 18 B/P (MAP) 110/68 (82) Pulse Ox 95 96 O2 Delivery Room Air Room Air Intake and Output 01/05/18 01/05/18 01/06/18 15:00 23:00 07:00 Intake Total 760 ml 120 ml Output Total 350 ml 2500 ml Balance 410 ml -2380 ml SHILPI GODYO MD Jan 06, 2018 15:00
[2018-01-06] MEDS: ENOXAPARIN 40 MG/0.4 ML SYRINGE. SQ SCH (15:32)
[2018-01-06 19:00] VITALS: BP 111/70
[2018-01-06] MEDS: FAMOTIDINE 20 MG TABLET. PO SCH (20:42)
[2018-01-06] MEDS: ATORVASTATIN CALCIUM 10 MG TABLET. PO SCH (20:42)
[2018-01-06 22:44] VITALS: BP 116/63
[2018-01-07 03:18] VITALS: BP 113/63
[2018-01-07 05:13] LABS: BASO # 0.1 x10^3/uL (0.0-0.2); BASO % 1 % (0-3); EOS # 0.3 x10^3/uL (0.0-0.7); EOS % 5 % (0-3); HEMOGLOBIN 8.3 g/dL (12.0-15.5); LYMPH # 1.9 x10^3/uL (1.0-4.8); LYMPH % 27 % (24-48); MEAN CORPUSCULAR HEMOGLOBIN 32 pg (25-35); MEAN CORPUSCULAR HGB CONC 33 g/dL (31-37); MEAN CORPUSCULAR VOLUME 96 fL (79-100); MONO # 0.8 x10^3/uL (0.0-1.1); MONO % 11 % (0-9); NEUT # 3.9 x10^3uL (1.8-7.7); NEUT % 57 % (31-73); PLATELET COUNT 265 x10^3/uL (140-400); RED BLOOD COUNT 2.61 x10^6/uL (3.50-5.40); RED CELL DISTRIBUTION WIDTH 15.8 % (11.5-14.5); WHITE BLOOD COUNT 6.9 x10^3/uL (4.0-11.0)
[2018-01-07 05:43] LABS: CALCIUM 8.8 mg/dL (8.5-10.1); CREATININE 0.5 mg/dL (0.6-1.0); GFR 124.2; POTASSIUM 4.5 mmol/L (3.5-5.1)
[2018-01-07] MEDS: INSULIN LISPRO 300 UNITS/3 ML INSULN.PEN. SQ SCH ×2 (08:00→12:00)
[2018-01-07] MEDS: IPRATROPIUM BROMIDE 0.5 MG/2.5 ML NEBU. IH SCH (08:03)
[2018-01-07 08:20] VITALS: BP 106/65
[2018-01-07] MEDS ORDERED: C.DIFF MED SCREEN BY RX. MC ONE (09:00)
[2018-01-07] MEDS: LACTOBACILLUS RHAMNOSUS GG 1 CAPSULE. PO SCH (09:18)
[2018-01-07] MEDS: LISINOPRIL 10 MG TABLET PO SCH (09:18)
[2018-01-07] MEDS: CLOPIDOGREL BISULFATE 75 MG TABLET PO SCH (09:18)
[2018-01-07] MEDS: ASCORBIC ACID 500 MG TABLET PO SCH (09:19)
[2018-01-07] MEDS: BUMETANIDE 1 MG/4 ML VIAL. IV SCH (09:19)
[2018-01-07] MEDS: buPROPion XL 150 MG TAB.ER.24H. PO SCH (09:19)
[2018-01-07] MEDS: GABAPENTIN 400 MG CAPSULE. PO SCH ×2 (09:19→13:39)
[2018-01-07] MEDS: valACYclovir 500 MG TABLET. PO SCH ×2 (09:19→13:39)
[2018-01-07] MEDS: MULTIVITAMIN with MINERAL TABLET. PO SCH (09:19)
[2018-01-07] MEDS: ASPIRIN CHEWABLE 81 MG TABLET. PO SCH (09:19)
[2018-01-07 11:00] VITALS: BP 123/69
[2018-01-07] MEDS ORDERED: BUME1TAB PO (11:07)
[2018-01-07] MEDS ORDERED: VALA500T PO (11:07)
[2018-01-07] MEDS ORDERED: FENT1PAT13 TP (11:07)
[2018-01-07] MEDS ORDERED: HYDR-2758 PO (11:07)
[2018-01-07] MEDS ORDERED: MULT1TAB90 PO (11:07)
[2018-01-07] MEDS ORDERED: ASCO500T2 PO (11:07)
--- NOTE | 2018-01-07 11:10 | DISCH ---
DISCHARGE DISCHARGE INFORMATION: DISCHARGE DATE: Jan 07, 2018 FINAL DIAGNOSIS Problems Medical Problems: (1) Acute exacerbation of CHF (congestive heart failure) Status: Acute (2) Hypotension Status: Acute (3) Urinary tract infection Status: Acute CONDITION ON DISCHARGE: Stable CODE STATUS: Code Status: DNR/DNI USP: SNF STAY <30 DAYS: Yes POST DISCHARGE ORDERS: ACTIVITY ORDERS: Activity as tolerated WEIGHT BEARING STATUS: As tolerated DIET AFTER DISCHARGE: Cardiac OTHER ORDERS: leg elevation TREATMENT/EQUIPMENT ORDERS: Physical Therapy For: Evalulation/Treatment Occupational Therapy For: Evaluation/Treatment DISCHARGE MEDICATIONS: Home Meds Active Scripts Multivits,Ca,Minerals/Iron/Fa (THERA-M TABLET) 1 Each Tablet, 1 TAB PO DAILY, # 10 TAB Prov:SHILPI GODOY MD 01/07/18 Ascorbic Acid (VITAMIN C) 500 Mg Tablet, 500 MG PO DAILY, #10 TAB Prov:SHILPI GODOY MD 01/07/18 Bumetanide (BUMETANIDE) 1 Mg Tablet, 0.5 MG PO DAILY, #30 TAB Prov:SHILPI GODOY MD 01/07/18 Valacyclovir Hcl (VALACYCLOVIR) 500 Mg Tablet, 1000 MG PO TID for 6 Days, #36 TAB Prov:SHILPI GODOY MD 01/07/18 Fentanyl (FENTANYL 12mcg/hr) 1 Each Patch.td72, 1 PATCH TP Q3DAYS, #5 PATCH Prov:SHILPI GODOY MD 01/07/18 Hydrocodone Bit/Acetaminophen (HYDROCODONE-APAP 5-325 ) 1 Each Tablet, 1 TAB PO PRN Q4HRS PRN for PAIN, #10 TAB 0 Refills Prov:SHILPI GODOY MD 01/07/18 Reported Medications Nicotine (NICODERM CQ 21mg) 1 Each Patch.td24, 1 PATCH TD DAILY, PATCH 12/15/17 Ipratropium Ecru (IPRATROPIUM BROMIDE) 0.2 Mg/1 Ml Solution, 0.5 MG IH, MISC 12/15/17 Famotidine (FAMOTIDINE) 40 Mg Tablet, 40 MG PO HS, TAB 12/15/17 Clopidogrel Bisulfate (CLOPIDOGREL) 75 Mg Tablet, 75 MG PO DAILY for TO PREVENT BLOOD CLOTS, #30 TAB 0 Refills 12/15/17 Bisacodyl (BISACODYL) 5 Mg Tablet.dr, 10 MG PO PRN DAILY PRN for CONSTIPATION, TAB 0 Refills 12/15/17 Aspirin (ASPIRIN) 81 Mg Tab.chew, 81 MG PO DAILY, TAB.CHEW 12/15/17 Insulin Glargine,Hum.rec.anlog (LANTUS SOLOSTAR) 100 Unit/1 Ml Insuln.pen, 1 UNIT SQ, SYR 12/07/17 Lisinopril (LISINOPRIL) 10 Mg Tablet, 10 MG PO DAILY for FOR HYPERTENSION, #30 TAB 0 Refills 12/07/17 Bupropion Hcl (BUPROPION XL) 150 Mg Tab.er.24h, 150 MG PO, TAB.SR 12/07/17 Gabapentin (GABAPENTIN) 400 Mg Capsule, 400 MG PO TID, CAP 12/07/17 Atorvastatin Calcium (ATORVASTATIN CALCIUM) 10 Mg Tablet, 10 MG PO HS for FOR CHOLESTEROL, #30 TAB 0 Refills 12/07/17 Discontinued Reported Medications Sennosides (SENNA) 8.6 Mg Tablet, 8.6 MG PO, TAB 12/15/17 SHILPI GODOY MD Jan 07, 2018 11:10
--- NOTE | 2018-01-07 13:07 | PDOC3 ---
Discharge Summary [facility] Date of Admission: Jan 03, 2018 Discharge Date: Jan 07, 2018 Admitting Diagnosis acute on chronic systolic CHF, EF 40% LE edema, weight gain with CHF hypotension obesity, BMI 30 weakness and debility HX tobacco use disorder decubitus ulcer stage 2 no UTI htn H/O cad dm2 Crohn dz left groin skin rash, could be shingles hypomagnesemia Final Diagnosis CONSULTS gi card Brief Hospital Course Ms. Fernandez is a 62 old F, who was dced from here 2 weeks ago fro NSTEMI, was sent from [facility] for low BP, and bl leg edema. pt said she was taking lasix in snf, BUT not listed as in paper. DEnies sob. BL leg improved with 0.5mg bumex iv daily. still 2+ tho. she also developed a left groin skin rash overnight, some opening, with burning pain, itchyness, concern shingles, add valtrex. she also c/o BM change, has crohns dz, has no BM for days as usual , then loose BM, she wanted GI CONSUlt for BM incontinence, Gi consulted,no intervention. dc back to [facility] with bumex 0.5mg daily. dc time 35min. decubitus has 2 lesions with some yellowish discharge coverage left groin skin rash with raised redness, some opening with scabs General: Alert, Cooperative Heart: Normal S1, Normal S2, Other (2-3/6 LLSB) Lungs: Clear Abdomen: Soft Extremities: Other (2+ bilateral LE edema) Skin: No rashes Patient History: FH: CAD (coronary artery disease) 32 MOTHER, , Age:40's - 50, Onset:40's - 50 FH: breast cancer G8 SISTER, , Age:60 years and older Unknown 33 FATHER, , Age:60 years and older G8 SISTER Disposition SNF CONDITION AT DISCHARGE: Improved Scheduled Ascorbic Acid (Vitamin C), 500 MG PO DAILY Aspirin (Aspirin), 81 MG PO DAILY, (Reported) Atorvastatin Calcium (Atorvastatin Calcium), 10 MG PO HS, (Reported) Bumetanide (Bumetanide), 0.5 MG PO DAILY Clopidogrel Bisulfate (Clopidogrel), 75 MG PO DAILY, (Reported) Famotidine (Famotidine), 40 MG PO HS, (Reported) Fentanyl (FENTANYL 12mcg/hr), 1 PATCH TP Q3DAYS Gabapentin (Gabapentin), 400 MG PO TID, (Reported) Lisinopril (Lisinopril), 10 MG PO DAILY, (Reported) Multivits,Ca,Minerals/Iron/Fa (Thera-M Tablet), 1 TAB PO DAILY Nicotine (NICODERM CQ 21mg), 1 PATCH TD DAILY, (Reported) Valacyclovir Hcl (Valacyclovir), 1,000 MG PO TID Scheduled PRN Bisacodyl (Bisacodyl), 10 MG PO PRN DAILY PRN for CONSTIPATION, (Reported) Hydrocodone Bit/Acetaminophen (Hydrocodone-Apap 5-325 ), 1 TAB PO PRN Q4HRS PRN for PAIN Miscellaneous Medications Bupropion Hcl (Bupropion Xl), 150 MG PO, (Reported) Insulin Glargine,Hum.rec.anlog (Lantus Solostar), 1 UNIT SQ, (Reported) Ipratropium [place] (Ipratropium [place]), 0.5 MG IH, (Reported) Discontinued Medications Sennosides (Senna), 8.6 MG PO, (Reported) SHILPI GODOY MD Jan 07, 2018 13:07
[2018-01-07] MEDS: HYDROcodone/APAP 5/325MG 1 TAB TABLET PO PRN (13:42)
[2018-01-07] MEDS: ENOXAPARIN 40 MG/0.4 ML SYRINGE. SQ SCH (14:00)
--- NOTE | 2018-01-07 14:01 | PDOC ---
Subjective: Subjective: Doing okay, going to [facility] later. Two small stools - one overnight and one this morning - both without warning, no cramping, etc. Objective: Objective: Per RN - very small stool this shift. Colonoscopy report from 2009 - anal scarring and otherwise normal colon to cecal area - biopsy w/ nonspecific inflammation. Vital Signs: Vital Signs Date Time Temp Pulse Resp B/P (MAP) Pulse Ox O2 Delivery O2 Flow Rate FiO2 01/07/18 11:00 98.7 109 16 123/69 (87) 93 Room Air 98.7 Labs: Laboratory Tests Test 01/06/18 17:29 01/06/18 20:05 01/07/18 04:30 01/07/18 08:19 Glucose (Fingerstick) 153 mg/dL 165 mg/dL 112 mg/dL White Blood Count 6.9 x10^3/uL Red Blood Count 2.61 x10^6/uL Hemoglobin 8.3 g/dL Hematocrit 25.0 % Mean Corpuscular Volume 96 fL Mean Corpuscular Hemoglobin 32 pg Mean Corpuscular Hemoglobin Concent 33 g/dL Red Cell Distribution Width 15.8 % Platelet Count 265 x10^3/uL Neutrophils (%) (Auto) 57 % Lymphocytes (%) (Auto) 27 % Monocytes (%) (Auto) 11 % Eosinophils (%) (Auto) 5 % Basophils (%) (Auto) 1 % Neutrophils # (Auto) 3.9 x10^3uL Lymphocytes # (Auto) 1.9 x10^3/uL Monocytes # (Auto) 0.8 x10^3/uL Eosinophils # (Auto) 0.3 x10^3/uL Basophils # (Auto) 0.1 x10^3/uL Sodium Level 135 mmol/L Potassium Level 4.5 mmol/L Chloride Level 101 mmol/L Carbon Dioxide Level 26 mmol/L Anion Gap 8 Blood Urea Nitrogen 17 mg/dL Creatinine 0.5 mg/dL Estimated GFR (Cockcroft-Gault) 124.2 Glucose Level 127 mg/dL Calcium Level 8.8 mg/dL Test 01/07/18 12:21 Glucose (Fingerstick) 165 mg/dL PE: GEN: NAD LUNGS: clear HEART: RR ABD: S/ND/NT NEURO/PSYCH: A & O 3 A/P: ?h/o Crohn's disease w/ small bowel resections Change in bowel habits over the past year -- Not suspicious for active Crohn's. Could try low-dose fiber. JOSEY SAUCEDA Jan 07, 2018 14:01
[2018-01-08] MEDS ORDERED: BUMETANIDE 1 MG TABLET. PO SCH (09:00)
== END 2018-01-07 16:48 | DRG 281 ==
LOC: ER 16:34 → 2 SOUTH 18:10
PROVIDERS: ADMIT Internal Medicine; ATTEND Internal Medicine
DX: I11.0 Hypertensive heart disease with heart failure (principal); I21.4 Non-ST elevation (NSTEMI) myocardial infarction; N30.00 Acute cystitis without hematuria; K50.90 Crohn's disease, unspecified, without complications; I50.23 Acute on chronic systolic (congestive) heart failure; I95.9 Hypotension, unspecified; L89.92 Pressure ulcer of unspecified site, stage 2; E05.90 Thyrotoxicosis, unspecified without thyrotoxic crisis or storm; I25.10 Atherosclerotic heart disease of native coronary artery without angina pectoris; E78.5 Hyperlipidemia, unspecified; E83.42 Hypomagnesemia; R13.10 Dysphagia, unspecified; E66.9 Obesity, unspecified; I25.5 Ischemic cardiomyopathy; J44.9 Chronic obstructive pulmonary disease, unspecified; F17.210 Nicotine dependence, cigarettes, uncomplicated; M19.90 Unspecified osteoarthritis, unspecified site; R62.7 Adult failure to thrive; Z82.49 Family history of ischemic heart disease and other diseases of the circulatory system; I25.2 Old myocardial infarction; Z68.30 Body mass index [BMI] 30.0-30.9, adult; Z80.3 Family history of malignant neoplasm of breast; Z79.82 Long term (current) use of aspirin; Z79.899 Other long term (current) drug therapy; Z90.710 Acquired absence of both cervix and uterus; Z95.1 Presence of aortocoronary bypass graft; Z88.5 Allergy status to narcotic agent; Z90.49 Acquired absence of other specified parts of digestive tract; Z68.28 Body mass index [BMI] 28.0-28.9, adult
CPT/HCPCS: 36415; 70450; 71045; 80048; 80053; 81001; 82553; 82962; 83605; 83735; 83880; 84484; 85025; 85610; 85651; 85730; 87086; 87324; 87641; 93005; 94640; 94760; 96361; 96365; 96375; J0690; J1650; J3010; J3475; J3490; J7030; J7644; 97110; 97116; 97530; 97535; 99285-25